=== PATIENT | female | born 1975 | race Caucasian/White ===

== ENCOUNTER 2020-01-27 12:55 | Outpatient (CLI) | payer OTHER, SELFPAY ==
--- NOTE | 2020-01-27 13:08 | MM_ITS ---
WS: [id number] SCREENING DIGITAL MAMMOGRAM WITH CAD HISTORY: SCREENING COMPARISON: 09/09/2017 and 08/22/2016 Bilateral CC and MLO views submitted. Computer aided detection analyzed. Breast composition: The breasts are heterogeneously dense, which may obscure small masses. Asymmetry measuring 5 mm in the lateral RIGHT breast. Possibly superior RIGHT breast on the lateral p rojection. Otherwise no suspicious findings. MM/[place] [id number] IMPRESSION: BI-RADS: 0-Incomplete: Need additional imaging evaluation FOLLOW UP: Need Additional Imaging RIGHT breast: Spot compression views (CC and MLO). True ML. Ultrasound to follo w if abnormality persists.
== END 2020-01-27 12:56 | disposition home or self-care (01) ==
LOC: RADSHAW 12:59
PROVIDERS: PCP Nurse Practitioner; Visit Provider Nurse Practitioner
DX: Z12.31 Encounter for screening mammogram for malignant neoplasm of breast (principal); N64.89 Other specified disorders of breast
CPT/HCPCS: 77067

== ENCOUNTER 2020-02-17 13:34 | Outpatient (CLI) | payer OTHER, SELFPAY ==
--- NOTE | 2020-02-17 13:39 | US_ITS ---
WS: [id number] ADDITIONAL VIEWS RIGHT BREAST RIGHT breast ultrasound, limited HISTORY: RT BREAST ASYMMETRY COMPARISON: 01/27/2020 and 09/09/2017 Compression views right CC and MLO projection. True ML also submitted. Persistent mass measuring 6 mm in the upper outer quadrant of the RIGHT breast at a posterior depth. RIGHT breast ultrasound, limited. Ultrasound directed to the upper outer quadrant. At 10:00, 4 to 5 c m from the nipple is a hypoechoic mass with a hyperechoic border measuring 6 x 5 x 6 mm. Minimal incr eased vascularity. This corresponds in size and location to the mammographic abnormality. There is an additional hypoechoic nodule without shadowing at 10:00, 3 cm in the nipple measuring 6 x 4 x 5 mm. US/US breast RT limited* [id number] IMPRESSION: BI-RADS: 4-Suspicious Finding-Biopsy Should Be Considered FOLLOW-UP: Biopsy Recommended Ultrasound-guided biopsy recommended of the RIGHT breast mass at 10:00, 4 to 5 cm from the nipple. There is an additional nodule at 3 cm from the nipple at the 10:00 axis. Slight ly less concerning features but should also undergo biopsy at the same time.
--- NOTE | 2020-03-02 11:13 | PC.NURSE ---
Called patient to go over pre biopsy instructions. Patient voiced understanding and has no other questions or concerns. Ghazala MCKEON
== END 2020-02-17 13:35 | disposition home or self-care (01) ==
PROVIDERS: PCP Nurse Practitioner; Visit Provider Nurse Practitioner
DX: N64.89 Other specified disorders of breast (principal); N63.11 Unspecified lump in the right breast, upper outer quadrant
CPT/HCPCS: 76642; 77065

== ENCOUNTER 2020-03-06 11:57 | Outpatient (CLI) | payer OTHER, SELFPAY ==
--- NOTE | 2020-03-06 12:02 | US_ITS ---
WS: [id number] ULTRASOUND-GUIDED RIGHT BREAST BIOPSY CLINICAL INFORMATION: R BREAST MASS COMPARISON: None. FINDINGS: The procedure including risks, benefits, and complications were discussed with the patient who agreed to proceed. Using sterile technique patient was prepped and draped in the usual sterile fashion. Aft er 1% lidocaine utilizing real-time ultrasound guidance 5 14-gauge cores were obtained of the right b reast lesion at the 10 o'clock position 4 to 5 cm from the nipple. Subsequently a titanium clip was p laced in the biopsy cavity. No immediate complications. Next, five 14-gauge cores were obtained of the right breast lesion at the 10:00 position 3 cm from th e nipple. Biopsy clip was placed in this area. No immediate combinations. PATHOLOGY DEMONSTRATES: A. 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 -Lymphovascular invasion identified. -Ductal carcinoma in situ, intermediate grade. B. Breast, right, additional nodule at 3 cm from nipple at 10 o'clock -Benign breast tissue with stromal sclerosis. -No malignancy identified. US/[place] [id number] IMPRESSION: 1. Uncomplicated ultrasound-guided right breast biopsy x2. 2. The pathology demonstrates: LESION A: Invasive intramammary carcinoma corresponding to the right breast mass 10:00 po sition 4 to 5 cm from the nipple. LESION B: Benign breast tissue with stromal sclerosis. No malignancy in this location. BI-RADS: 6-Known Biopsy-Proven Malignancy FOLLOW UP: Surgical Biopsy Recommended RECOMMEND BREAST SURGERY CONSULTATION
[2020-03-21 10:24] LABS: Miscellaneous Test See Scanned Lab Rpt
== END 2020-03-06 11:58 | disposition home or self-care (01) ==
LOC: RAD 12:00
PROVIDERS: Radiology Neuroradiology; PCP Nurse Practitioner; Visit Provider Nurse Practitioner
DX: C50.411 Malignant neoplasm of upper-outer quadrant of right female breast (principal)
CPT/HCPCS: 19083; 88305

== ENCOUNTER 2020-03-06 17:38 | Emergency (ER) | payer OTHER, SELFPAY ==
[2020-03-06 17:48] VITALS: BP 120/77; PULSE 105; RESP 18; TEMP 36.2; O2SAT 98; BMI 36.3
--- NOTE | 2020-03-06 18:33 | W.ED.SKABFB ---
HPI - Skin/Abscess/Foreign Bdy General: Chief complaint: Skin/Abscess/Foreign Body Stated complaint: Bleeding from Right Breast/Post Biopsy Time Seen by Provider: 03/06/20 18:32 History of Present Illness: HPI narrative: Patient is a 45-year-old female comes to the ED for post right breast biopsy bleeding. Patient says earlier today she had a biopsy performed on her right breast. She is had bleeding that she has not been able to control and she has been soaking through bandages. She called the doctor and they told her to come to the ED for evaluation. She has no other complaints. Associated symptoms: Deny chills, fever(s), nausea or vomiting Review of Systems Const: Denies: fever(s), chills or fatigue Eyes: Denies: change in vision or eye discomfort ENMT: Denies: throat pain, odynophagia, nasal discharge or nasal congestion Card: Denies: chest pain, palpitations, edema, swelling of feet/ankles, dyspnea on exertion or orthopnea Resp: Denies: dyspnea, productive cough or non-productive cough GI: Denies: abdominal pain, nausea, vomiting, diarrhea, constipation or hematochezia : Denies: flank pain, dysuria or hematuria Musc: Denies: neck pain, back pain or extremity swelling Skin/Breast: Reports: surgical incision (right breast); Denies: rash or new lesions Neuro: Denies: headache(s), numbness in extremities or weakness in extremities Physical Exam Const: COMMON NORMALS: no acute distress, patient oriented x3, healthy appearing and alert GENERAL APPEARANCE: cooperative and comfortable HENMT: COMMON NORMALS: normocephalic HEAD & SCALP: normocephalic MOUTH: Normal oral and palatal mucosa present THROAT: posterior oropharynx normal and uvula midline Neck/C-Spine: COMMON NORMALS: supple GENERAL: Yes normal visual inspection Resp: COMMON NORMALS: normal respiratory effort, No retractions, No use of accessory muscles and clear to auscultation bilaterally AUSCULTATION: clear to auscultation bilaterally Cardio: COMMON NORMALS: regular rate, regular rhythm, S1 normal heart sound present, S2 normal heart sound present, No gallops present (Cardio), No clicks present (Cardio), No murmurs present (Cardio) and Peripheral pulses 2+ throughout RATE: regular rate RHYTHM: regular rhythm HEART SOUNDS: S1 normal heart sound present and S2 normal heart sound present PERIPHERAL PULSES: Peripheral pulses 2+ throughout GI: COMMON NORMALS: Normal to inspection, nondistended, normoactive bowel sounds present, Soft to palpation, non-tender and no masses PALPATION: Yes Soft to palpation : COMMON NORMALS: Yes no CVA tenderness BLADDER/KIDNEY EXAM: Yes no CVA tenderness Back/Pelvis: COMMON NORMALS: no CVA tenderness Extremity: COMMON NORMALS: normal to inspection and no pedal edema Neuro: COMMON NORMALS: patient oriented x3 and moves all extremities SENSORIUM/ORIENTATION: Yes alert Skin: NARRATIVE SKIN EXAM: Nurse was present during exam. surgical site on right breast is to less than half a centimeter incisions. No visible drainage or active bleeding seen. No signs of cellulitis. WOUNDS: Yes surgical site (Patient has no bleeding or drainage around surgical site on right breast. ) Details: size (2 small half a centimeter incisions. No active bleeding or drainage seen.) Course ED course: Nurse changed the bandage over surgical with gauze and Tegaderm. Vital Signs: Vital signs: Vital Signs Temperature 97.2 F L 03/06/20 17:48 Pulse Rate 105 H 03/06/20 17:48 Respiratory Rate 18 03/06/20 17:48 Blood Pressure 120/77 03/06/20 17:48 Pulse Oximetry 98 03/06/20 17:48 MDM - Skin/Abscess/Foreign Bdy MDM Narrative: Medical decision making narrative: Patient is a 45-year-old female comes to the ED with post right breast biopsy bleeding. Current bandage was removed by myself and nurse and surgical site was examined. No active bleeding and no signs of any infection seen. Bleeding appeared to already stopped. gauze with Tegaderm placed over surgical site and patient was sent home with some extra gauze as well. Return to ED precautions given. Patient understood agree with plan. Discharge Plan Discharge Patient Disposition: Home Clinical Impression: Status post breast biopsy Condition: Stable Discharge Orders: Discharge Order (Routine); Ordered 03/06/20 Ordered By: Edmund Yee Referrals: Aniya Solis APN [Primary Care Provider] - Discharge Diet: Regular Discharge Activity: Resume usual activity Patient Instructions: Postoperative Bleeding (ED) Activity Restrictions/Additional Instructions: Follow-up with medical provider as directed by surgeon. Return to the ER or your medical provider if condition worsens. Please read and understand discharge instructions. If any questions, please ask. Coding Level of Care Code ED Equipment Or Machinery Cleaner for Chg Fwd Exam Comprehensive
== END 2020-03-06 19:21 | disposition home or self-care (01) ==
PROVIDERS: Emergency Provider Physician Assistant; PCP Nurse Practitioner
DX: Z98.890 Other specified postprocedural states (principal)
CPT/HCPCS: 12345; 99281

== ENCOUNTER 2020-03-22 09:55 | Outpatient (CLI) | payer OTHER, SELFPAY ==
--- NOTE | 2020-03-22 14:11 | ONC CON_ITS ---
Dr. Florez New Patient Note Patient: Marga Cochran Unit #: [id number]: [id number] Dicatated By: Adrián Florez M.D.Date of Visit: Mar 22, 2020 Onc MED New Patient/Consult Referring Physician: Dominic Aguilar Chief Complaint: Breast cancer. History of Present Illness: This is a 45 year-old woman with grade 3 infiltrating ductal carcinoma of the right breast, ER/OK negative and HER-2/eugene negative. She has been in good general health. She had presented with an abnormal screening mammogram. That study, from 01/27/2020, was BI-RADS 0. Findings included an asymmetry measuring 5 mm in the lateral or possibly superior right breast. Additional mammographic views of the right breast on 02/17/2020 showed persistent mass measuring 6 mm in the upper outer quadrant at a posterior dept. Right breast ultrasound showed a hypoechoic mass with hyperechoic border at the 10 o'clock position, 4 to 6 mm some the nipple. It measred 6 x 5 x 6 mm. There was minimal increased vascularity. That lesion was noted to correspond to the mammographic abnormality. A second hypoechoic nodule without shadowing was noted at 10:00, 3 cm from the nipple, measuring 6 x 4 x 5 mm. The findings were BI-RADS 4, suspicious, and biopsy was recommended. On 03/06/2020 she underwent ultrasound-guided biopsy of both right breast lesions. Pathology on the 10:00 mass at 4 to 5 cm from the nipple showed grade 3 infiltrating ductal carcinoma. Lymphovascular invasion was identified. 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 The breast prognostic profile showed ER negative <1% and OK negative <1%. The tumor was negative for overexpression of HER-2/eugene, 1+ by IHC and amplification ratio by FISH of 1.1 with 1.3 HER-2 copies/cell. The Ki-67 was unfavorable at 70%. Pathology on the lesion 3 cm from the nipple showed benign breast tissue with stromal sclerosis. There was no malignancy identified. She has been feeling pretty good generally. She says she gets tired a little bit quicker, but she still has normal activity. ECOG score is 0. Her appetite is good and her weight is stable. She has not had fever. She does have hot flashes. She has some allergy related sinus drainage with associated cough. She has no shortness of breath or chest pain. She has no GI/ complaints other than some chronic constipation. She has fibromyalgia pain, but no significant joint or bone pain. She reports having constant headache. She occasionally has numbness in her left hand. She has no other focal neurologic symptoms. She stopped menstruating 3 years ago. She had no hormone replacement therapy, but she had taken oral contraceptive in the past. Her father has been treated for prostate cancer, and a brother of a brain tumor at age 9. There is no history of breast cancer or ovarian cancer in the family. Past Medical History: Her medical history consists of chronic headaches, depression, and fibromyalgia. Past Surgical History: She underwent ultrasound directed biopsy of the right breast on 03/06/2020. Medications: Amitriptyline HCl 1 Tablet (of 75 mg) Oral daily, Claritin 1 Tablet (of 10 mg) Oral daily, Ibuprofen 1 Tablet (of 600 mg) Oral daily PRN, Venlafaxine HCl ER 1 Capsule (of 150 mg) Capsule SR 24 HR Oral daily Allergies: No Known Allergies. Social History: Ms. 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 She is a non-smoker. She has just occasional alcohol use. Family History: Both parents are still living, father at age 88 and mother at age 76. He has been treated for prostate cancer and he also has had a stroke. Her mother has fibromyalgia and history of uveitis. A brother of a brain tumor at age 9. Review Of Symptoms: Constitutional - She has been getting tired a little bit quicker. She still has normal activity. Her appetite is good and her weight is stable. She has not had fever. She does have hot flashes. ECOG score is 0, Eyes - No change in vision, ENMT - No hearing loss. She has tinnitus. She has allergy related sinus symptoms. No mouth sores. No sore throat or difficulty swallowing, Hematologic/Lymphatic - No abnormal bruising or bleeding, Respiratory - No shortness of breath. She has cough associated with sinus drainage. No pleuritic pain or hemoptysis, Cardiovascular - No angina pain. No palpitations, Gastrointestinal - No nausea or vomiting. No heartburn or acid reflux. She has some chronic constipation. No blood in the stool or black stools, Genitourinary (F) - No dysuria or hematuria. No urinary frequency. No urgency or incontinence, Musculoskeletal - She has fibromyalgia pain, but no significant joint or bone pain, Integumentary - No skin rash or other skin changes, Neurologic - She has chronic headaches. No dizziness. She occasionally has numbness in her left hand. No other focal neurologic symptoms, Psychiatric - She has depression, but it is adequately managed with medication. She has some difficulty falling asleep. Vital Signs: Performed on Mar 22, 2020 11:08: 0, 37.63 (HIGH), 1.98 sq.m, 63.00 in, 98 %, 78 /min, 22 /min, 110/78 mm(hg), 98.3 F (LOW), and 212.4 lbs (HIGH). Physical Examination: Constitutional - She appears to be in good general health, Eyes - Sclerae nonicteric. Conjunctivae clear, ENMT - No lesions noted in the oral cavity, Neck - No mass or thyromegaly, Hematologic/Lymphatic - No cervical or clavicular adenopathy, Respiratory - Lungs are clear with good air movement bilaterally, Cardiovascular - Heart rhythm is regular. There is no murmur, gallop, or rub noted, Breasts - There is a small area of nodularity/induration at the biopsy site in the upper outer quadrant of the right breast. The left breast shows no mass. There is no axillary adenopathy, Abdomen - Soft and non-tender. Liver and spleen are not enlarged. There is no abdominal mass or ascites noted and there is no inguinal adenopathy, Back/Spine - No spine or CVA tenderness noted, Extremities - No edema, Integumentary - No rashes. No suspicious skin lesions noted, Neurologic - No focal neurologic deficits noted. Impression: 1. Patient with grade 3 infiltrating ductal carcinoma of the right breast, ER/OK negative and HER-2/eugene negative. Staging is incomplete, but by ultrasound she appears to have a very small primary tumor (T1b). 2. She underwent ultrasound directed biopsy of the right breast on 03/06/2020. Her other medical illnesses include: 3. Fibromyalgia. 4. Chronic headache. 5. Depression. Plan: The mammogram/ultrasound findings and the pathology results were reviewed with the patient and her . She has a grade 3 triple negative infiltrating ductal carcinoma of the right breast. The Ki-67 is high at 70%. Overall, the pathologic indicators are very unfavorable. However, by ultrasound it appears to be a very small primary so that she hopefully will have a good outcome. I reviewed options for local therapy which may include lumpectomy/radiation versus mastectomy. With either procedure she would also have axillary lymph node sampling. With a single, small primary lesion breast conservation management would still be a very reasonable option, even in the setting of triple negative disease, and there would be no indication for neoadjuvant chemotherapy. She may, however, still be interested in mastectomy, and they are going to take some time to discuss that further. Recommendations for systemic adjuvant chemotherapy will depend on the final staging. We also discussed the fact that if she is going to have a lumpectomy procedure, we may want to consider removing both of the breast lesions, just to be 100% certain that the second lesion is benign. I will plan to contact them next week to arrange for surgical consultation. Signed By: Adrián Florez M.D. <<Signature on File>>
== END 2020-03-22 09:56 | disposition home or self-care (01) ==
LOC: ONCMED 09:56
PROVIDERS: PCP Nurse Practitioner; Visit Provider Internal Medicine Medical Oncology
DX: C50.411 Malignant neoplasm of upper-outer quadrant of right female breast (principal); Z17.1 Estrogen receptor negative status [ER-]; M79.7 Fibromyalgia; F32.9 Major depressive disorder, single episode, unspecified; R51.9 Headache, unspecified
CPT/HCPCS: 99205

== ENCOUNTER → 2020-03-30 14:23 | Outpatient (BNVA) | payer OTHER, SELFPAY | PROVIDERS: PCP Nurse Practitioner; Visit Provider Surgery | DX: Z20.828 Contact with and (suspected) exposure to other viral communicable diseases (principal); C50.911 Malignant neoplasm of unspecified site of right female breast | CPT/HCPCS: 87635 ==

== ENCOUNTER 2020-04-05 07:36 | Day surgery (SDC) | payer OTHER, SELFPAY ==
[2020-04-04 13:59] VITALS: BMI 37.2
--- NOTE | 2020-04-05 | US_ITS ---
WS: [id number] ULTRASOUND-GUIDED RIGHT BREAST NEEDLE LOCALIZATION x 2 HISTORY: MALIGNANT NEOPLASM OF THE RIGHT BREAST Procedure, risks and complications were explained to the patient. Consent is obtained. There are 2 nodules in the RIGHT breast for which localization is requested. One of these nodules is malignant and the other was benign on prior biopsy. Skin is cleansed with ChloraPrep and anesthetized with 1% buffered lidocaine. Needle and guidewire pl aced to the area of concern with no complications. Ultrasound guidance performed during the needle lo calization. Guidewire is left within the lesion. Guidewire secured and no complications encountered. Patient is being transported to the OR suite. Initial wire is placed through the 10:00 lesion 3 cm from the nipple. Subsequent wire is then placed in the previously diagnosed malignant nodule at 10:00, 4 to 5 cm from the nipple. Specimen radiograph is also reviewed. The nodules are difficult to see by ultrasound. Mammographic im ages submitted in both clips are present. RECOMMENDATIONS: Follow-up with oncology and surgery. 2. Mass at 10:00, 3 cm from the nipple. Labeled lateral margin lumpectomy. PATHOLOGY RESULTS: Negative for malignancy. RECOMMENDATIONS: No additional follow-up necessary. US/US breast surgical specimen IMPRESSION: 1. Uncomplicated wire localization RIGHT breast mass at 10:00, 4 to 5 cm from t he nipple. PATHOLOGY RESULTS: Moderate to poorly differentiated invasive ductal carcinoma. Lymphovascular invasion identified. Ductal carcinoma in situ. Anterior margin is positive.
--- NOTE | 2020-04-05 | US_ITS ---
WS: [id number] ULTRASOUND-GUIDED RIGHT BREAST NEEDLE LOCALIZATION x 2 HISTORY: MALIGNANT NEOPLASM OF THE RIGHT BREAST Procedure, risks and complications were explained to the patient. Consent is obtained. There are 2 nodules in the RIGHT breast for which localization is requested. One of these nodules is malignant and the other was benign on prior biopsy. Skin is cleansed with ChloraPrep and anesthetized with 1% buffered lidocaine. Needle and guidewire pl aced to the area of concern with no complications. Ultrasound guidance performed during the needle lo calization. Guidewire is left within the lesion. Guidewire secured and no complications encountered. Patient is being transported to the OR suite. Initial wire is placed through the 10:00 lesion 3 cm from the nipple. Subsequent wire is then placed in the previously diagnosed malignant nodule at 10:00, 4 to 5 cm from the nipple. Specimen radiograph is also reviewed. The nodules are difficult to see by ultrasound. Mammographic im ages submitted in both clips are present. RECOMMENDATIONS: Follow-up with oncology and surgery. 2. Mass at 10:00, 3 cm from the nipple. Labeled lateral margin lumpectomy. PATHOLOGY RESULTS: Negative for malignancy. RECOMMENDATIONS: No additional follow-up necessary. US/[place] [id number] IMPRESSION: 1. Uncomplicated wire localization RIGHT breast mass at 10:00, 4 to 5 cm from t he nipple. PATHOLOGY RESULTS: Moderate to poorly differentiated invasive ductal carcinoma. Lymphovascular invasion identified. Ductal carcinoma in situ. Anterior margin is positive.
--- NOTE | 2020-04-05 07:44 | NM_ITS ---
WS: [id number] NUCLEAR MEDICINE SENTINEL LYMPH NODE IMAGING HISTORY: R BREAST LUMPECTOMY COMPARISON: None available. TECHNIQUE: The patient was injected with 1.04 mCi of Technetium 99 ultra filtered sulfur colloid. Inj ection is intradermal in a periareolar location. Four aliquots are used. Uncomplicated injection. NM/NM sentinel node inject [id number] IMPRESSION: Uncomplicated RIGHT breast sentinel node injection.
[2020-04-05 07:51] VITALS: BP 132/85; PULSE 92; RESP 18; TEMP 36.4; O2SAT 97
[2020-04-05 08:09] LABS: OR HCG Qualitative Urine Negative (Negative)
--- NOTE | 2020-04-05 09:45 | W.PM.OPSUD ---
Surgery/Procedure H&P Update DATE OF PROCEDURE: April 05, 2020 DATE H&P PERFORMED: 03/28/20 H&P UPDATE INFORMATION: I have reviewed H&P completed within last 30 days, I have examined patient prior to procedure and No changes to prior documentation PREOP DIAGNOSIS: breast ca PLANNED PROCEDURE: Operation Date: 04/05/20 11:20 Proposed Procedures p Breast Biopsy Needle Localization [id number] C50.911(Right) - Harshal Frazier MD s Sentinal Lymph Node Biopsy(Right) - Harshal Frazier MD s Right Breast Lumpectomy(Right) - Harshal Frazier MD
[2020-04-05] MEDS: sodium chloride 0.9% 1,000 ML 30 ML IV (10:10)
--- NOTE | 2020-04-05 10:19 | P.ANESASSM_ITS ---
Pre-Anesthetic Assessment Pre-Anesthetic Assessment: Height/Weight: Height 1.6 m Weight 95.254 kg Temp Pulse Resp BP Pulse Ox 97.5 F L 92 18 132/85 97 04/05/20 07:51 04/05/20 07:51 04/05/20 07:51 04/05/20 07:51 04/05/20 07:51 Preop Diagnosis: breast ca Proposed Procedure: Operation Date: 04/05/20 11:20 Proposed Procedures p Breast Biopsy Needle Localization [id number] C50.911(Right) - Harshal Frazier MD s Sentinal Lymph Node Biopsy(Right) - Harshal Frazier MD s Right Breast Lumpectomy(Right) - Harshal Frazier MD Was Beta Amira taken within 24 hours: N/A Last intake: Intake Last Liquid Date 04/04/20 Last Liquid Time 18:30 Last Solid Date 04/04/20 Last Solid Time 18:30 Social: Social History: Alcohol and No tobacco Exam: Pre-Anes Outpt Exam: alert, oriented x 3, clear to auscultation bilaterally and regular rate & rhythm Airway: Submandibular: WNL Cervical ROM: WNL MP: 2 Dentition: Full History/ROS: No significant history except as noted and No significant complaints Pulmonary: Pulmonary: None reported CV/HEM: CV/HEM: None reported : : None reported Hepatic: Hepatic: None reported GI: GI: None reported Metabolic: Metabolic: None reported Musc/skel: Musc/skel: None reported Neuropsych: Neuropsych: None reported Anesthetic Plan: ASA status: 1 Anesthesia: General Risk of > 500 ml blood loss (7ml/kg in children): No PFSH Anesthesia PFSH: Medical History Breast cancer, right breast Depression Fibromyalgia Migraine Family History Denies family history of Anesthesia complication Bleeding disorder Social History Smoking and tobacco status: never smoked Alcohol intake: current Alcohol intake frequency: holidays/special occasions only Adopted: No Caregiver/support person: Yes Lives independently: Yes Household members: spouse and children Housing: House Marital status: service: No Current occupational status: employed Pets and animals: No History of recent travel: No Sexually active: Yes Current gender identity: Female Harrison/Zoroastrianism: Christianity Special harrison needs: No Data Anesthesia Other Labs: Laboratory Results - last 48 hr 04/05/20 08:05 Urine HCG, Qual Negative Cardiac Studies: No Data to Display
[2020-04-05] MEDS: isosulfan blue 10 mg/mL SDV 5mL SUBCUT (11:55)
[2020-04-05] MEDS: lidocaine 1% INJ 20 mL SUBCUT (13:15)
--- NOTE | 2020-04-05 13:41 | MM_ITS ---
WS: [id number] ULTRASOUND-GUIDED RIGHT BREAST NEEDLE LOCALIZATION x 2 HISTORY: MALIGNANT NEOPLASM OF THE RIGHT BREAST Procedure, risks and complications were explained to the patient. Consent is obtained. There are 2 nodules in the RIGHT breast for which localization is requested. One of these nodules is malignant and the other was benign on prior biopsy. Skin is cleansed with ChloraPrep and anesthetized with 1% buffered lidocaine. Needle and guidewire pl aced to the area of concern with no complications. Ultrasound guidance performed during the needle lo calization. Guidewire is left within the lesion. Guidewire secured and no complications encountered. Patient is being transported to the OR suite. Initial wire is placed through the 10:00 lesion 3 cm from the nipple. Subsequent wire is then placed in the previously diagnosed malignant nodule at 10:00, 4 to 5 cm from the nipple. Specimen radiograph is also reviewed. The nodules are difficult to see by ultrasound. Mammographic im ages submitted in both clips are present. RECOMMENDATIONS: Follow-up with oncology and surgery. 2. Mass at 10:00, 3 cm from the nipple. Labeled lateral margin lumpectomy. PATHOLOGY RESULTS: Negative for malignancy. RECOMMENDATIONS: No additional follow-up necessary. MM/MM surgical specimen RT IMPRESSION: 1. Uncomplicated wire localization RIGHT breast mass at 10:00, 4 to 5 cm from t he nipple. PATHOLOGY RESULTS: Moderate to poorly differentiated invasive ductal carcinoma. Lymphovascular invasion identified. Ductal carcinoma in situ. Anterior margin is positive.
[2020-04-05 13:58] VITALS: BP 94/76; PULSE 99; RESP 20; TEMP 36.1; O2SAT 99
[2020-04-05 14:05] VITALS: BP 89/48; PULSE 80; RESP 20; O2SAT 100
[2020-04-05 14:10] VITALS: BP 114/76; PULSE 92; RESP 15; TEMP 36.2; O2SAT 97
[2020-04-05 14:14] VITALS: BP 109/83; PULSE 89; RESP 16; TEMP 36.2; O2SAT 95
[2020-04-05 14:30] VITALS: BP 100/83; PULSE 90; RESP 18; O2SAT 96
[2020-04-05] MEDS: HYDROcodone-acetaminophen 5-325 mg Tablet 1 TAB PO (14:33)
--- NOTE | 2020-04-05 15:27 | P.OP_ITS ---
Operative Report Date of procedure: April 05, 2020 Pre-op Diagnosis: 6 mm invasive ductal carcinoma right breast Pre-op Diagnosis: 6 x 5 x 4 cm right breast lesion Post-op Findings: Same Procedure Done: Wire localization lumpectomy right breast with shave margin Injection of 1% Lymphazurin Right axillary sentinel lymph node biopsy Pathology: Right breast mass containing 2 localization wires for the benign as well as malignancy, short stitch superior, long stitch lateral Lateral shave margin Right axillary sentinel lymph node biopsy Surgeon: Harshal Frazier Anesthesia: General Condition: stable Disposition: PACU Procedure: The wire localization of the mammographic abnormality was performed by the radiologist under ultrasound guidance and the patient was transferred to operating room and placed under GA after IV antibiotic had been administered. The right breast was prepped and draped in a manner . 2 separate localization wires had been placed for the 2 lesions at 10 o'clock position about 3 cm and 5 cm from the areolar margin. A curvilinear incision was made over the areolar margin at 9'o clock medial to the marking over the mammographic abnormality, subcutaneous tissue was divided and skin flaps were raised laterally. The dissection was carried towards the localization wires creating a subcutaneous plane and the wires were identified and the dissection was carried superior and lateral to the localized area. Finally the dissection was carried medially,superiorly, inferiorly and posterior to the localized area and specimen was excised completely. Using 2-0 silk suture, short stitch was placed superiorly and a long stitch was placed laterally. Shave margin margin was obtained laterally and the outer edge was inked and sent separately to patho logy. The wound was irrigated with saline, titanium clips placed along the edge of the lumpectomy cavity, hemostasis ensured with electrocautery and subcutaneous tissues approximated using 3-0 running Vicryl suture and skin was closed using running subcuticular 4-0 Monocryl sutures and surgical glue. A technetium sulfur colloid had been injected previously by the radiologist in the periareolar area. 5 mL of 1% Lymphazurin was injected in the subareolar location. The breast was massaged for 5 minutes and a 2 cm incision was made in the left axilla at the edge of the hairline. The subcutaneous tissue and clavipectoral fascia was divided with electrocautery and gentle dissection revealed lymphatics with stained lymph nodes. Using electrocautery the lymph nodes were dissected free. Examination of the axilla did not reveal any other active lymph nodes. The clavipectoral and subcutaneous tissue was approximated using running 3-0 Vicryl suture and skin was closed using running subcuticular 4-0 Monocryl suture and surgical glue.. 1% lidocaine with 0.5% Marcaine was infiltrated at both sites. Fluffs were used for pressure dressing. Patient was transferred to recovery room in stable condition The lumpectomy specimens were sent to ultrasound initially, the biopsy clips could not be identified but it was confirmed on mammogram.
--- NOTE | 2020-04-05 18:37 | ANE.PACU2 ---
Inpatient post-anesthesia follow up: Airway intact: Yes Vital signs: Temperature 97.1 F Pulse Rate 90 Respiratory Rate 18 Blood Pressure 100/83 Pulse Oximetry 96 Oxygen Delivery Me thod Room Air Oxygen Flow Rate 6 Fraction of Inspir ed Oxygen Hydration adequate: Yes Nausea and vomiting: No Pain level: 1 Mental status: Baseline
== END 2020-04-05 14:59 | disposition home or self-care (01) ==
PROVIDERS: PCP Nurse Practitioner; Visit Provider Surgery
PROC: (CPT 19301; principal; 2020-04-05 11:20)
PROC: (CPT 19301; 2020-04-05 11:20)
PROC: (CPT 19301; 2020-04-05 11:20)
DX: C50.911 Malignant neoplasm of unspecified site of right female breast (principal); F32.9 Major depressive disorder, single episode, unspecified; M79.7 Fibromyalgia
CPT/HCPCS: 19301; 38500; 12345; 19285; 19286; 38792; 84703; 88305; 96365; A9541; J0690; J1100; J1885; J2370; J2405; J2704; J3010; J3490; J7030; Q9968

== ENCOUNTER 2020-04-17 08:28 | Outpatient (CLI) | payer OTHER, SELFPAY | END 2020-04-17 08:29 | disposition home or self-care (01) | LOC: ONCMED 08:31 | PROVIDERS: PCP Nurse Practitioner; Visit Provider Internal Medicine Medical Oncology | DX: C50.411 Malignant neoplasm of upper-outer quadrant of right female breast (principal); Z17.1 Estrogen receptor negative status [ER-] | CPT/HCPCS: 36415 ==

== ENCOUNTER → 2020-05-10 08:51 | Outpatient (BNVA) | payer OTHER, SELFPAY | PROVIDERS: PCP Nurse Practitioner; Visit Provider Surgery | DX: Z11.59 Encounter for screening for other viral diseases (principal); C50.911 Malignant neoplasm of unspecified site of right female breast | CPT/HCPCS: 87635 ==

== ENCOUNTER 2020-05-15 06:10 | Day surgery (SDC) | payer OTHER, SELFPAY ==
[2020-05-12 13:05] VITALS: BMI 37.2
[2020-05-15 06:24] VITALS: BP 119/80; PULSE 92; RESP 18; TEMP 36; O2SAT 98
--- NOTE | 2020-05-15 06:45 | P.HP_ITS ---
Same Day Surgery H&P Indication for Procedure/HPI DATE OF PROCEDURE: May 15, 2020 CHIEF COMPLAINT/INDICATIONFOR SURGICAL PROCEDURE: Right breast reexcision of margins PREOP DIAGNOSIS: Positive margin breast cancer PLANNED PROCEDRUE: Operation Date: 05/15/20 07:40 Proposed Procedures p Right breast Lumpectomy 78368 C50.911(Right) - Harshal Frazier MD Medications/Allergies* Home Medications Medication Instructions Recorded Confirmed Type amitriptyline 75 mg tablet 75 mg PO DAILY 03/28/20 05/15/20 History ibuprofen 600 mg tablet 600 mg PO Q8H PRN 03/28/20 05/15/20 History loratadine 10 mg tablet 10 mg PO DAILY 03/28/20 05/15/20 History venlafaxine 150 mg 150 mg PO DAILY 03/28/20 05/15/20 History capsule,extended release 24 hr Allergies/Adverse Reactions Allergy/AdvReac Type Severity Reaction Status Date / Time No Known Allergies Allergy Verified 05/12/20 13:03 Pertinent History/Comorbid Conditions* Medical History (Updated 03/28/20 @ 15:20 by Harshal Frazier MD) Breast cancer, right breast Depression Fibromyalgia Migraine Surgical History (Updated 04/05/20 @ 14:05 by Harshal Frazier MD) Status post right breast lumpectomy (04/05/20) sentinel lymph node biopsy Family History (Updated 03/28/20 @ 14:54 by Fidelina Adler RN) Denies family history of Anesthesia complication Bleeding disorder Social History Smoking and tobacco status: never smoked Alcohol intake: current Alcohol intake frequency: holidays/special occasions only Adopted: No Caregiver/support person: Yes Lives independently: Yes Household members: spouse and children Housing: House Marital status: service: No Current occupational status: employed Pets and animals: No History of recent travel: No Sexually active: Yes Current gender identity: Female Mary/Moravian: [employer] Special mary needs: No Pertinent Exam Findings alert, oriented x 3 and regular rate & rhythm Recommendations Surgery/Procedure today Coding Level of Care Code 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
--- NOTE | 2020-05-15 06:47 | ANES.PREANE2 ---
Pre-Anesthetic Assessment Pre-Anesthetic Assessment: Height/Weight: Height 1.6 m Weight 95.254 kg Temp Pulse Resp BP Pulse Ox 96.8 F L 92 18 119/80 98 05/15/20 06:24 05/15/20 06:24 05/15/20 06:24 05/15/20 06:24 05/15/20 06:24 Preop Diagnosis: Positive margin breast cancer Proposed Procedure: Operation Date: 05/15/20 07:40 Proposed Procedures p Right breast Lumpectomy 87318 C50.911(Right) - Harshal Frazier MD Familial anesthetic complications: None Was Beta Amira taken within 24 hours: N/A Last intake: Intake NPO > 8 hrs Last Liquid Date 05/14/20 Last Solid Date 05/14/20 Social: Social History: No alcohol and No tobacco Exam: Pre-Anes Outpt Exam: alert, oriented x 3, clear to auscultation bilaterally and regular rate & rhythm Airway: Cervical ROM: WNL MP: 4 Dentition: Full Metabolic: Metabolic: Morbid obesity Anesthetic Plan: ASA status: 1 Anesthesia: MAC Risk of > 500 ml blood loss (7ml/kg in children): No PFSH Anesthesia PFSH: Medical History Breast cancer, right breast Depression Fibromyalgia Migraine Surgical History Status post right breast lumpectomy (04/05/20) sentinel lymph node biopsy Family History Denies family history of Anesthesia complication Bleeding disorder Social History Smoking and tobacco status: never smoked Alcohol intake: current Alcohol intake frequency: holidays/special occasions only Adopted: No Caregiver/support person: Yes Lives independently: Yes Household members: spouse and children Housing: House Marital status: service: No Current occupational status: employed Pets and animals: No History of recent travel: No Sexually active: Yes Current gender identity: Female Harrison/Restorationism: Catholic Special harrison needs: No Data Anesthesia Cardiac Studies: No Data to Display
[2020-05-15] MEDS: sodium chloride 0.9% 1,000 ML 30 ML IV (06:49)
[2020-05-15] MEDS: lidocaine 1% INJ 20 mL 10 ML INJECTION (07:45)
--- NOTE | 2020-05-15 07:52 | PM.OP ---
Operative Report Date of procedure: May 15, 2020 Pre-op Diagnosis: 1. Triple negative invasive ductal adenocarcinoma 2. Status post right breast lumpectomy sentinel lymph node biopsy with positive anterior margin with DCIS Post-op Findings: Same Procedure Done: Reexcision of anterior margin right breast lumpectomy site Pathology: Anterior margin, outer edge inked Surgeon: Harshal Frazier Anesthesia: MAC Condition: stable Disposition: PACU Procedure: The patient was taken to the operating room and placed under MAC and the right breast was prepped and draped in a sterile manner. Using a 15 blade the incision on the areola was reopened, subcutaneous tissue was divided using electrocautery and the lumpectomy cavity was reopened. The clips previously placed at the margins of the lumpectomy cavity was identified. Using electrocautery a 1 cm anterior margin was excised and the outer edge was inked. Wound was irrigated saline, hemostasis ensured and subcutaneous was approximated using interrupted 3-0 Vicryl suture and skin was closed using running subcuticular 4-0 Monocryl suture and surgical glue. Fluffs and support bras were placed. The patient was transferred to same-day surgery in stable condition.
[2020-05-15 07:57] VITALS: BP 134/84; PULSE 91; RESP 18; TEMP 36; O2SAT 92
[2020-05-15 08:14] VITALS: BP 148/99; PULSE 88; RESP 18; O2SAT 97
--- NOTE | 2020-05-15 15:41 | ANE.PACU2 ---
Inpatient post-anesthesia follow up: Airway intact: Yes Vital signs: Temperature 96.8 F Pulse Rate 88 Respiratory Rate 18 Blood Pressure 148/99 Pulse Oximetry 97 Oxygen Delivery Me thod Room Air Oxygen Flow Rate Fraction of Inspir ed Oxygen Hydration adequate: Yes Nausea and vomiting: No Pain level: 1 Mental status: Baseline
== END 2020-05-15 08:47 | disposition home or self-care (01) ==
PROVIDERS: PCP Nurse Practitioner; Visit Provider Surgery
PROC: (CPT 19301; principal; 2020-05-15 07:30)
DX: C50.911 Malignant neoplasm of unspecified site of right female breast (principal); F32.9 Major depressive disorder, single episode, unspecified; M79.7 Fibromyalgia; E66.01 Morbid (severe) obesity due to excess calories; Z68.37 Body mass index [BMI] 37.0-37.9, adult
CPT/HCPCS: 19301; 12345; 88305; J0690; J2704; J3010; J3490; J7030

== ENCOUNTER 2020-06-06 05:55 | Outpatient (CLI) | payer OTHER, SELFPAY ==
--- NOTE | 2020-06-07 07:22 | ONC FU_ITS ---
Dr. Florez Patient Follow-Up Note Patient: Marga Cochran Unit #: [id number]: 1975 Dicatated By: Adrián Florez M.D.Date of Visit:Jun 06, 2020 Onc Med Follow-up/Prog Note Chief Complaint: Breast cancer. History of Present Illness: This is a 45 year-old woman with grade 3 infiltrating ductal carcinoma of the right breast, ER/SC negative and HER-2/eugene negative. She had presented with an abnormal screening mammogram. That study, from 01/27/2020, was BI-RADS 0. Findings included an asymmetry measuring 5 mm in the lateral or possibly superior right breast. Additional mammographic views of the right breast on 02/17/2020 showed persistent mass measuring 6 mm in the upper outer quadrant at a posterior dept. Right breast ultrasound showed a hypoechoic mass with hyperechoic border at the 10 o'clock position, 4 to 6 mm some the nipple. It measred 6 x 5 x 6 mm. There was minimal increased vascularity. That lesion was noted to correspond to the mammographic abnormality. A second hypoechoic nodule without shadowing was noted at 10:00, 3 cm from the nipple, measuring 6 x 4 x 5 mm. The findings were BI-RADS 4, suspicious, and biopsy was recommended. On 03/06/2020 she underwent ultrasound-guided biopsy of both right breast lesions. Pathology on the 10:00 mass at 4 to 5 cm from the nipple showed grade 3 infiltrating ductal carcinoma. Lymphovascular invasion was identified. 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 The breast prognostic profile showed ER negative <1% and SC negative <1%. The tumor was negative for overexpression of HER-2/eugene, 1+ by IHC and amplification ratio by FISH of 1.1 with 1.3 HER-2 copies/cell. The Ki-67 was unfavorable at 70%. Pathology on the lesion 3 cm from the nipple showed benign breast tissue with stromal sclerosis. There was no malignancy identified. I had seen her initially on 03/22/2020. She opted to proceed with breast conservation management. On 04/05/2020 she underwent right breast lumpectomy with axillary sentinel lymph node biopsy. Pathology showed grade 3 invasive ductal carcinoma. The largest focus measured 0.4 cm. There was a minor component of ductal carcinoma in situ. The anterior margin was reported to be focally positive. All other margins were negative. There was no involvement in 1 sentinel lymph node. She underwent reexcision lumpectomy on 05/15/2020. There is no residual carcinoma identified. In the meantime, I had also recommended genetic screening. 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 There was no evidence for a BRCA mutation. She is seen now to discuss further management of the breast cancer. She has no significant complaints at this time. Medications: Amitriptyline HCl 1 Tablet (of 75 mg) Oral daily, Claritin 1 Tablet (of 10 mg) Oral daily, Ibuprofen 1 Tablet (of 600 mg) Oral daily PRN, Venlafaxine HCl ER 1 Capsule (of 150 mg) Capsule SR 24 HR Oral daily Allergies: No Known Allergies. Vital Signs: Performed on Jun 06, 2020 11:10 Height - 63.00 in Weight - 216.4 lbs (HIGH) BSA - 2.00 sq.m BMI - 38.33 (HIGH) Temperature - 97.2 F (LOW) Pulse - 86 /min Respiration - 17 /min BP - 124/82 mm(hg) O2 Sat - 96 % Pain - 0 Problem List: 1. Grade 3 infiltrating ductal carcinoma of the right breast, stage IB (T1b, pN0, M0), ER/SC negative and HER-2/eugene negative. She underwent ultrasound directed biopsy of the right breast on 03/06/2020 followed by right breast lumpectomy and sentinel axillary lymph node biopsy on 04/05/2020 and by reexcision lumpectomy on 05/15/2020. 2. Fibromyalgia. 3. Chronic headache. 4. Depression. Problems Addressed with this Encounter and Plan: Grade 3 infiltrating ductal carcinoma of the right breast, stage IB (T1b, pN0, M0), ER/SC negative and HER-2/eugene negative. She underwent ultrasound directed biopsy of the right breast on 03/06/2020 followed by right breast lumpectomy and sentinel axillary lymph node biopsy on 04/05/2020 and by reexcision lumpectomy on 05/15/2020. There is some uncertainty of the staging due to the small size of her primary tumor, but I estimated it to be a T1b lesion based on the size of the initial biopsy specimen, which was almost completely involved, and the residual tumor in the lumpectomy specimen measuring 0.4 cm. While she does appear to have very early stage disease, the concern is the fact that with a triple negative cancer with a high Ki-67 at 70% she will be at significant risk for recurrence, which which I would estimate to be at least average for node-negative breast cancer, that is in the range of at least 30% recurrence risk. Per NCCN guidelines, she is in a category in which adjuvant chemotherapy may be considered. I discussed with the patient and her the possibility of undergoing adjuvant chemotherapy with 4 cycles of cyclophosphamide/docetaxel, which statistically would have a 30% reduction in the risk of recurrence. She is aware that there would still be risk for breast cancer recurrence even with treatment. I reviewed anticipated side effects with the chemotherapy which would potentially include nausea/vomiting, alopecia, fatigue, low blood counts, and neuropathy, among others. She is aware that she also will require placement of a Port-A-Cath for venous access for the chemotherapy. She is going to discuss this with her , and I anticipate that she will be making a decision by the end of the week. If she opts against chemotherapy, she can proceed with radiation. Radiation would otherwise be deferred until after the chemotherapy is completed. Signed By: Adrián Florez M.D. <<Signature on File>>
== END 2020-06-06 05:56 | disposition home or self-care (01) ==
LOC: ONCMED 05:55
PROVIDERS: PCP Nurse Practitioner; Visit Provider Internal Medicine Medical Oncology
DX: C50.411 Malignant neoplasm of upper-outer quadrant of right female breast (principal); Z17.1 Estrogen receptor negative status [ER-]; M79.7 Fibromyalgia; R51.9 Headache, unspecified; F32.9 Major depressive disorder, single episode, unspecified
CPT/HCPCS: 99214

== ENCOUNTER 2020-06-22 05:39 | Outpatient (RCR) | payer OTHER, SELFPAY ==
--- NOTE | 2020-06-21 09:56 | N.ONRAD NP_ITS ---
Radiation Oncology Consultation Patient Name: Marga Cochran Date of : 1975 Date of Service: 06/21/2020 Attending Physician: Raymond Love M.D. Marga Cochran was seen in consultation this afternoon at the request of Adrián Florez M.D. for consideration of adjuvant radiotherapy for the management of her recently diagnosed early stage breast cancer. A screening mammogram (personally reviewed in [facility]) performed in January 2020 identified an asymmetry measuring 5 mm in the right breast. Diagnostic mammography confirmed a persistent mass in the upper-outer quadrant of the right breast. Ultrasonography demonstrated at the 10 o'clock position in the right breast, 4 to 5 cm from the nipple, a hypoechoic mass (6 mm) and an additional hypoechoic nodule without shadowing at the 10 o'clock position, 3 cm from the nipple measuring 6 mm. An ultrasound-guided biopsy completed on March 07, 2020 diagnosed a grade III invasive ductal carcinoma obtained from the lesion located 4 to 5 cm from the nipple and benign breast tissue with stromal sclerosis identified from the biopsy specimen 3 cm from the nipple. The breast cancer profile was negative for estrogen receptor, progesterone receptor, and HER-2. The Ki-67 was 70%. A right partial mastectomy with sentinel lymph node biopsy was performed by Freddie Caputo M.D. on April 05, 2020. The pathology report obtained in [facility] (and directly canvassed by co) confirmed a 4 mm invasive ductal carcinoma (grade III). A sentinel lymph node biopsy harvested one lymph node that was negative for metastasis. Anterior margin was positive. A re-excision completed on May 07, 2020 identified benign breast tissue. The patient presents for evaluation regarding adjuvant radiotherapy. I discussed the [place] [employer] on Cancer Staging and specifically the patient's pathologic stage IB (T1aN0) breast cancer, I also reviewed the classic study by the NSABP comparing mastectomy, lumpectomy, and lumpectomy with radiotherapy and the Early Breast Cancer Trialist Collaborative Group meta-analysis. She is aware that the addition of radiotherapy to lumpectomy provides improvement in local control and overall survival. Prior to beginning treatment, a planning CT scan will be acquired to delineate the clinical target volume. I anticipate a three week course of radiotherapy to the breast. An additional week will be administered to the surgical bed at the conclusion of the whole breast treatment as a consequence of the patient's high-grade tumor characteristics The patient has verbalized understanding and would like to proceed as recommended. Signed by: Dr. Raymond Love 06/21/2020 10:07:30 AM
--- NOTE | 2020-06-22 | CT_ITS ---
Radiation Therapy Planning CT images; total exam DLP: 1096.55 mGy-cm MTDD
== END 2020-06-25 23:59 | disposition home or self-care (01) ==
LOC: ONCMED 05:39
PROVIDERS: PCP Nurse Practitioner; Visit Provider Radiology Radiation Oncology
DX: Z51.0 Encounter for antineoplastic radiation therapy (principal); C50.411 Malignant neoplasm of upper-outer quadrant of right female breast; Z17.1 Estrogen receptor negative status [ER-]; M79.7 Fibromyalgia; G43.919 Migraine, unspecified, intractable, without status migrainosus; F32.9 Major depressive disorder, single episode, unspecified; Z90.11 Acquired absence of right breast and nipple; Z79.899 Other long term (current) drug therapy
CPT/HCPCS: 77280; 77332; 99215

== ENCOUNTER 2020-07-25 05:38 | Outpatient (RCR) | payer OTHER, SELFPAY ==
--- NOTE | 2020-06-27 14:17 | ONCRAD TMN_ITS ---
Radiation Oncology Weekly Treatment Management Patient: Dimas Gresham> MR#: [id number] : 1975> Attending Physician: Dr. Sony Love Date of Service: 06/27/2020 Referring Physician(s) : Aniya Solis NP Diagnosis: C50.411 - Malignant neoplasm of upper-outer quadrant of right female breast, Diagnosed 03/07/2020 (Active) Stage IB, T1a, pN0, M0, G3, HER2 Neg, ER Neg, UT N Radiotherapy to date: Course: [id number], Treatment Site: Breast Ca, Ref. ID: [id number], Energy: 15X/6X, Dose/Fx (cGy): 266.7, #Fx: , Dose Correction (cGy): 0, Total Dose (cGy): 533.3, Start Date: 06/26/2020, Elapsed Days: 1 Reason for visit: The patient is being seen today as part of their regularly scheduled weekly on treatment visits to assess for acute toxicities from radiotherapy. Review of Systems: Just began treatment 06/26/2020. Doing well. Active at home. No symptoms noted. Vital Signs: Performed on 06/27/2020 1:56 PM BMI - 38.015 kg/m2 (high), Height - 63.00 in, Weight - 214.6 lbs, Temperature - 97.3 f, Pulse - 86, Respiration - 18, O2 Sat - 97 %, Pain - 0, Fatigue - 0 and BP - 117/ 85 mm(hg). Physical Exam: omitted Imaging: Radiation therapy imaging related to accurate target localization (i.e. KV, MV and CBCT) was reviewed. Appropriate changes, if any, were made to ensure treatment accuracy. Plan: Good tolerance of treatment. Continue as planned. Signed by: Dr. Sony Love 06/27/2020 2:15:45 PM
--- NOTE | 2020-07-05 14:00 | ONCRAD TMN_ITS ---
Radiation Oncology Treatment Management Note Patient Name: Marga Cochran Date of : 1975 Date of Service: 07/05/2020 Attending Physician: Raymond Love M.D. Marga Cochran is a 69 year-old white female diagnosed with pathological stage IB (T1aN0) grade 3 invasive ductal carcinoma of the upper-outer quadrant of the right breast. The breast cancer profile was negative for estrogen receptor, progesterone receptor and HER2. The Ki-67 of 70%. A partial mastectomy with sentinel lymph node biopsy was performed on April 05, 2020 with a re-excision completed on May 07, 2020 attributable to a positive margin. She has received 21.3 Gy of a prescribed 40 Gy delivered in the prone disposition with a 3D conformal radiotherapy plan utilizing opposed tangential portal you. An additional 10 Gy in 5 fractions will be administered to the surgical bed at the conclusion of the whole breast treatment as a consequence of the patient's high-grade tumor characteristics. Upon review of systems, she denied any breast complaints to radiotherapy. On physical examination, the patient weighed 215 lbs. Her temperature was 97.9 ???F with a blood pressure of 116/85 mmHg. Her pulse was 71 bpm and her respiratory rate was 20. There was no erythema within the treatment you of the right breast. Continue right breast radiotherapy as prescribed. Signed by: Dr. Raymond Love 07/05/2020 1:58:35 PM
--- NOTE | 2020-07-11 13:51 | ONCRAD TMN_ITS ---
Radiation Oncology Treatment Management Note Patient Name: Marga Cochran Date of : 1975 Date of Service: 07/11/2020 Attending Physician: Raymond Love M.D. Marga Cochran is a 69 year-old white female diagnosed with pathological stage IB (T1aN0) grade 3 invasive ductal carcinoma of the upper-outer quadrant of the right breast. The breast cancer profile was negative for estrogen receptor, progesterone receptor and HER2. The Ki-67 of 70%. A partial mastectomy with sentinel lymph node biopsy was performed on April 05, 2020 with a re-excision completed on May 07, 2020 attributable to a positive margin. She has received 32 Gy of a prescribed 40 Gy delivered in the prone disposition with a 3D conformal radiotherapy plan utilizing opposed tangential portal you. An additional 10 Gy in 5 fractions will be administered to the surgical bed at the conclusion of the whole breast treatment as a consequence of the patient's high-grade tumor characteristics. Upon review of systems, she denied any breast complaints to radiotherapy. On physical examination, the patient weighed 216 lbs. Her temperature was 97.5 ???F with a blood pressure of 114/79 mmHg. Her pulse was 79 bpm and her respiratory rate was 18. There was no erythema within the treatment you of the right breast. Continue right breast radiotherapy as planned. Signed by: Dr. Raymond Love 07/11/2020 1:50:05 PM
--- NOTE | 2020-07-18 14:05 | ONCRAD TMN_ITS ---
Radiation Oncology Treatment Management Note Patient Name: Marga Cochran Date of : 1975 Date of Service: 07/18/2020 Attending Physician: Raymond Love M.D. Marga Cochran is a 69 year-old white female diagnosed with pathological stage IB (T1aN0) grade 3 invasive ductal carcinoma of the upper-outer quadrant of the right breast. The breast cancer profile was negative for estrogen receptor, progesterone receptor and HER2. The Ki-67 of 70%. A partial mastectomy with sentinel lymph node biopsy was performed on April 05, 2020 with a re-excision completed on May 07, 2020 attributable to a positive margin. She has received 40 Gy of a prescribed 40 Gy delivered in the prone disposition with a 3D conformal radiotherapy plan utilizing opposed tangential portal you. An additional 10 Gy in 5 fractions will be administered to the surgical bed at the conclusion of the whole breast treatment as a consequence of the patient's high-grade tumor characteristics. Upon review of systems, she described discomfort in the right axilla. On physical examination, the patient weighed 216 lbs. Her temperature was 97.5 ???F with a blood pressure of 114/79 mmHg. Her pulse was 79 bpm and her respiratory rate was 18. There was erythema within the right axilla (grade I). Continue right breast radiotherapy as prescribed. She will apply Lidocaine cream to axilla. Signed by: Dr. Raymond Love 07/18/2020 2:02:46 PM
== END 2020-07-26 23:59 | disposition home or self-care (01) ==
LOC: ONCMED 05:38
PROVIDERS: PCP Nurse Practitioner; Visit Provider Radiology Radiation Oncology
DX: Z51.0 Encounter for antineoplastic radiation therapy (principal); C50.411 Malignant neoplasm of upper-outer quadrant of right female breast; Z17.1 Estrogen receptor negative status [ER-]; L58.0 Acute radiodermatitis; Y84.2 Radiological procedure and radiotherapy as the cause of abnormal reaction of the patient, or of later complication, without mention of misadventure at the time of the procedure; Z90.11 Acquired absence of right breast and nipple
CPT/HCPCS: 77295; 77300; 77307; 77334; 77336; 77387; 77412

== ENCOUNTER 2020-08-25 06:17 | Outpatient (RCR) | payer OTHER, SELFPAY ==
--- NOTE | 2020-08-25 11:11 | ONCRAD EPV_ITS ---
Radiation Oncology Follow-Up Note Patient Name: Marga Cochran Date of : 1975 Date of Service: 08/25/2020 Attending Physician: Raymond Love M.D. Marga Cochran returned to my office this morning for a routinely scheduled follow-up appointment. She completed adjuvant radiotherapy in June for the post-operative management of a pathological stage IB (T1a N0) poorly-differentiated ductal carcinoma of the upper-outer quadrant of the right breast. The breast cancer profile was negative for estrogen receptor, progesterone receptor and HER2. The Ki-67 of 70%. A partial mastectomy with sentinel lymph node biopsy was performed on April 05, 2020 with a re-excision completed on May 07, 2020 attributable to a positive margin. Daily radiotherapy was administered between the dates of June 26, 2020 through July 25, 2020. A prescribe dose of 50 Gy was delivered in 20 fractions encompassing 30 elapsed days. On review of systems, she did not report any breast complaints. On physical examination, she weighed 214 lbs and her temperature was 96.6???F. Her blood pressure was 119/79 mmHg. The pulse was 100 bpm and her respiratory rate was 18. Examination of the right breast did not reveal any significant erythema nor hyperpigmentation. In summary, Ms. Cochran returned for a routine post radiotherapy follow-up. She does not have any sequelae from treatment. The patient will continue follow-up with her medical oncologist. Signed by: Dr. Raymond Love 08/25/2020 11:10:02 AM
== END 2020-08-25 23:59 | disposition home or self-care (01) ==
LOC: ONCMED 06:17
PROVIDERS: PCP Nurse Practitioner; Visit Provider Radiology Radiation Oncology
DX: C50.411 Malignant neoplasm of upper-outer quadrant of right female breast (principal); Z17.1 Estrogen receptor negative status [ER-]; Z79.899 Other long term (current) drug therapy
CPT/HCPCS: 99024

== ENCOUNTER 2020-09-14 06:21 | Outpatient (RCR) | payer OTHER, SELFPAY ==
--- NOTE | 2020-09-14 18:45 | ONC FU_ITS ---
Dr. Florez Patient Follow-Up Note Patient: Marga Cochran Unit #: [id number]: 1975 Dicatated By: Adrián Florez M.D.Date of Visit:September 14, 2020 Onc Med Follow-up/Prog Note Chief Complaint: Breast cancer. History of Present Illness: This is a 45 year-old woman with grade 3 infiltrating ductal carcinoma of the right breast, ER/WA negative and HER-2/eugene negative. She had presented with an abnormal screening mammogram. That study, from 01/27/2020, was BI-RADS 0. Findings included an asymmetry measuring 5 mm in the lateral or possibly superior right breast. Additional mammographic views of the right breast on 02/17/2020 showed persistent mass measuring 6 mm in the upper outer quadrant at a posterior dept. Right breast ultrasound showed a hypoechoic mass with hyperechoic border at the 10 o'clock position, 4 to 6 mm some the nipple. It measred 6 x 5 x 6 mm. There was minimal increased vascularity. That lesion was noted to correspond to the mammographic abnormality. A second hypoechoic nodule without shadowing was noted at 10:00, 3 cm from the nipple, measuring 6 x 4 x 5 mm. The findings were BI-RADS 4, suspicious, and biopsy was recommended. On 03/06/2020 she underwent ultrasound-guided biopsy of both right breast lesions. Pathology on the 10:00 mass at 4 to 5 cm from the nipple showed grade 3 infiltrating ductal carcinoma. Lymphovascular invasion was identified. 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 The breast prognostic profile showed ER negative <1% and WA negative <1%. The tumor was negative for overexpression of HER-2/eugene, 1+ by IHC and amplification ratio by FISH of 1.1 with 1.3 HER-2 copies/cell. The Ki-67 was unfavorable at 70%. Pathology on the lesion 3 cm from the nipple showed benign breast tissue with stromal sclerosis. There was no malignancy identified. I had seen her initially on 03/22/2020. She opted to proceed with breast conservation management. On 04/05/2020 she underwent right breast lumpectomy with axillary sentinel lymph node biopsy. Pathology showed grade 3 invasive ductal carcinoma. The largest focus measured 0.4 cm. There was a minor component of ductal carcinoma in situ. The anterior margin was reported to be focally positive. All other margins were negative. There was no involvement in 1 sentinel lymph node. She underwent reexcision lumpectomy on 05/15/2020. There is no residual carcinoma identified. In the meantime, I had also recommended genetic screening. 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 There was no evidence for a BRCA mutation. With a triple negative cancer and a high Ki-67 index, I had recommended adjuvant chemotherapy with 4 cycles of cyclophosphamide/docetaxel. She has had done some additional research on her own, and ultimately she declined the adjuvant chemotherapy. She then began radiation to the right breast on 06/26/2020. She completed treatment on 07/25/2020 to a total dose of 5000 cGy. This included 15 daily fractions of 266.7 centigrade followed by a boost of 5 daily fractions at 200 cGy. She is seen for a follow-up visit. She says her energy is still a little low following the radiation, and she does feel tired a lot. She is doing light work. ECOG score is 1. Her appetite is good. She has not had fever. She does have hot flashes in the evenings. She has some sinus drainage and a little bit of sore throat. She also has been a little short of breath at times. She does not complain of cough and she has not been having chest pain. She has no GI/ complaints other than occasional acid reflux. She has some chronic fibromyalgia pain which is the same. She has headaches, which are the same as always. She occasionally has dizziness, and she sometimes has numbness in her hands. She has been having trouble falling asleep. She has some depression, but no worse than normal. Medications: Amitriptyline HCl 1 Tablet (of 75 mg) Oral daily, Claritin 1 Tablet (of 10 mg) Oral daily, Ibuprofen 1 Tablet (of 600 mg) Oral daily PRN, Venlafaxine HCl ER 1 Capsule (of 150 mg) Capsule SR 24 HR Oral daily Allergies: Red dye Vital Signs: Performed on September 14, 2020 09:57 Height - 63.00 in Weight - 216 lbs (HIGH) BSA - 2.00 sq.m BMI - 38.26 (HIGH) Temperature - 97.2 F (LOW) Pulse - 98 /min Respiration - 18 /min BP - 112/76 mm(hg) O2 Sat - 99 % Pain - 2 Fatigue - 2 Physical Examination: Constitutional - She looks pretty good generally, Eyes - Sclerae nonicteric. Conjunctivae clear, ENMT - No lesions noted in the oral cavity, Hematologic/Lymphatic - No cervical, clavicular, or axillary adenopathy, Respiratory - Lungs are clear with good air movement bilaterally, Cardiovascular - Heart rhythm is regular. There is no murmur, gallop, or rub noted, Abdomen - Soft. Liver and spleen are not enlarged. There is no abdominal mass or ascites noted and there is no inguinal adenopathy, Extremities - No edema, Neurologic - No focal neurologic deficits noted. Problem List: 1. Grade 3 infiltrating ductal carcinoma of the right breast, stage IB (T1b, pN0, M0), ER/WA negative and HER-2/eugene negative. She underwent ultrasound directed biopsy of the right breast on 03/06/2020 followed by right breast lumpectomy and sentinel axillary lymph node biopsy on 04/05/2020 and by reexcision lumpectomy on 05/15/2020. 2. Fibromyalgia. 3. Chronic headache. 4. Depression. Problems Addressed with this Encounter and Plan: Patient with grade 3 infiltrating ductal carcinoma of the right breast, stage IB (T1b, pN0, M0), ER/WA negative and HER-2/eugene negative. She underwent ultrasound directed biopsy of the right breast on 03/06/2020 followed by right breast lumpectomy and sentinel axillary lymph node biopsy on 04/05/2020 and by reexcision lumpectomy on 05/15/2020. There is some uncertainty of the staging due to the small size of her primary tumor, but I estimated it to be a T1b lesion based on the size of the initial biopsy specimen, which was almost completely involved, and the residual tumor in the lumpectomy specimen measuring 0.4 cm. Despite the small size of her primary tumor, with triple negative disease and a high Ki-67 index, I did recommend adjuvant chemotherapy with 4 cycles of cyclophosphamide docetaxel. After additional research on her own, she declined chemotherapy. She then underwent radiation to the right breast, completed on 07/25/2020 to a total dose of 5000 cGy. She is still having some fatigue following the radiation. She is also having some hot flashes. She has fibromyalgia pain and headaches, both of which are chronic. Overall, though, she appears to be doing well clinically. She will continue expectant management for the breast cancer. I will see her again in 3 months. She will have laboratory studies with that visit including CBC, comprehensive metabolic profile, 25-hydroxy vitamin D level, and TSH level. Signed By: Adrián Florez M.D. <<Signature on File>>
== END 2020-09-25 23:59 | disposition home or self-care (01) ==
LOC: ONCMED 06:21
PROVIDERS: PCP Nurse Practitioner; Visit Provider Internal Medicine Medical Oncology
DX: Z08 Encounter for follow-up examination after completed treatment for malignant neoplasm (principal); Z85.3 Personal history of malignant neoplasm of breast; Z90.11 Acquired absence of right breast and nipple; M79.7 Fibromyalgia; G43.919 Migraine, unspecified, intractable, without status migrainosus; F32.9 Major depressive disorder, single episode, unspecified; Z79.899 Other long term (current) drug therapy; Z92.3 Personal history of irradiation
CPT/HCPCS: G0463

== ENCOUNTER 2020-11-06 10:02 | Emergency (ER) | payer OTHER, SELFPAY ==
--- NOTE | 2020-11-06 | CT_ITS ---
jono bashir 01 21 1975 CTA OF THE CHEST WITH PULMONARY EMBOLISM PROTOCOL TECHNIQUE: High-resolution contrast enhanced CTA of the chest with coronal and sagittal reformatted images with pulmonary embolism protocol. MIP images are also reviewed. CLINICAL INFORMATION: Chest pain shortness of breath COMPARISON: None. DLP: All CT scans at [facility] use at least one of these dose optimization techniques: automated exposure control; mA and/or kV adjustment per patient size (includes targeted exams where dose is matched to clinical indication); or iterative reconstruction. FINDINGS: Proximal main pulmonary arteries are normal. Segmental and subsegmental pulmonary arteries are normal. No evidence of pulmonary embolus. Normal caliber thoracic aorta. Bilateral perihilar bronchovascular thickening and reactive hilar lymph nodes. Compressive atelectasis in the lung bases. Bilateral perihilar and upper lobe groundglass infiltrates suspicious for COVID19 pneumonia. IMPRESSION: 1. No evidence for pulmonary embolus. 2. Bilateral perihilar and upper lobe groundglass infiltrates suspicious for COVID 19 pneumonia 3. Compressive atelectasis in the lung bases. MTDD
[2020-11-06 10:11] VITALS: BP 110/78; PULSE 110; RESP 20; TEMP 37.1; O2SAT 91; BMI 38.0
--- NOTE | 2020-11-06 10:45 | PC.NURSE ---
PATIENT ARRIVED IN ROOM FROM WAITING ROOM AT 1040.
--- NOTE | 2020-11-06 10:54 | W.ED.COVID ---
HPI - COVID General: Chief Complaint: Shortness of Breath/Dyspnea Stated Complaint: COVID +/SOB/LOW O2 Time Seen by Provider: 11/06/20 10:44 Triage information: Has fever, cough or shortness of breath. Exposure to COVID + person last 14 days History of Present Illness: HPI Narrative: 45-year-old female presents emergency room complaining of shortness of breath. Patient tested positive for Covid on 7 5 and had oxygen levels at home this morning that were tracking in the mid 80s consistently. She arrived here she is 91% on room air. She states over the weekend she began consistently having increasing shortness of breath with any activities. She is not diabetic not hypertensive. Not obese. MD complaint: known COVID positive Prior covid testing: yes, results known Prior testing date: 10/30/20 COVID 19 common symptoms: positive fever(s), chills, cough, non-productive cough, dyspnea, fatigue, body aches, throat pain, nasal congestion, nausea and diarrhea COVID 19 other sytmptoms: positive requiring oxygen; negative chest pain Treatment prior to arrival: acetaminophen and ibuprofen COVID Results: Nasal/Oral Coronavirus 2019 PCR Not detected 05/10/20 08:51 05/10/20 Review of Systems Const: Reports: fever(s), chills, body aches and fatigue ENMT: Reports: throat pain and nasal congestion Card: Denies: chest pain, edema, dyspnea on exertion or orthopnea Resp: Reports: dyspnea and non-productive cough GI: Reports: nausea and diarrhea : Denies: flank pain, difficulty voiding, dysuria, urinary frequency or urinary urgency Skin/Breast: Denies: rash or pruritus [facility] ED PFSH: Medical History (Updated 11/06/20 @ 12:25 by Felice Trejo DO) Breast cancer, right breast Stage Ib [T1aN0} COVID-19 Depression Fibromyalgia Migraine Surgical History S/P breast lumpectomy (05/15/20) reexcision of anterior margin Status post right breast lumpectomy (04/05/20) sentinel lymph node biopsy Family History Denies family history of Anesthesia complication Bleeding disorder Social History Smoking and tobacco status: never smoked Alcohol intake: current Alcohol intake frequency: holidays/special occasions only Adopted: No Caregiver/support person: Yes Lives independently: Yes Household members: spouse and children Housing: House Marital status: service: No Current occupational status: employed Pets and animals: No History of recent travel: No Sexually active: Yes Current gender identity: Female Mary/Episcopal: Baptism Special mary needs: No Physical Exam Const: COMMON NORMALS: no acute distress GENERAL APPEARANCE: cooperative and comfortable ORIENTATION/CONSCIOUSNESS: Yes awake, Yes oriented to person, Yes oriented to place and Yes oriented to time HENMT: COMMON NORMALS: normocephalic, atraumatic, hearing grossly normal bilaterally and external ears normal HEAD & SCALP: normocephalic and atraumatic EXTERNAL EAR: Yes external ears normal Neck/C-Spine: COMMON NORMALS: no JVD Resp: COMMON NORMALS: normal respiratory effort, No retractions and No use of accessory muscles AUSCULTATION: wheezes Cardio: COMMON NORMALS: no JVD, regular rate, regular rhythm and No murmurs present (Cardio) RATE: regular rate RHYTHM: regular rhythm GI: COMMON NORMALS: Soft to palpation and No hepatosplenomegaly present AUSCULTATION: Yes normoactive bowel sounds PALPATION: Yes Soft to palpation, No Tenderness to palpation present (GI), No Guarding due to palpation present (GI) and Yes No hepatosplenomegaly present Extremity: COMMON NORMALS: normal to inspection, capillary refill normal, no clubbing, cyanosis or edema, no calf tenderness and no pedal edema Neuro: SENSORIUM/ORIENTATION: Yes oriented to person, Yes oriented to place and Yes oriented to time Skin: COMMON NORMALS: no rashes or lesions noted GENERAL SKIN EXAM: no rashes or lesions noted Course Vital Signs: Vital signs: Vital Signs Temperature 98.4 F 11/06/20 11:06 Pulse Rate 87 11/06/20 12:00 Respiratory Rate 15 11/06/20 12:00 Blood Pressure 120/71 11/06/20 12:00 Pulse Oximetry 88 L 11/06/20 12:28 MDM - COVID MDM Narrative: Medical decision making narrative: CT shows evidence of Covid pneumonitis but no evidence of PE patient sat is good with oxygen support will discharge home on dexamethasone and home O2 continue to monitor sats return if has worsening problems Lab Data: Labs: Lab Results 11/06/20 11/06/20 Range/Units 11:00 11:00 WBC 3.0 L (4.0-10.0) 10^3/ uL RBC 4.28 (4.1-5.3) 10^6/u L Hgb 12.8 (11.5-15.3) g/dL Hct 39.4 (37.0-47.0) % MCV 92.1 (81-99) fL MCH 29.9 (28.0-34.0) pg MCHC 32.5 (30.0-36.0) g/dL RDW 12.6 (12.1-15.1) % Plt Count 148 (130-400) 10^3/c mm MPV 9.3 (7.4-10.4) fL Neut % (Auto) 84.3 % Lymph % (Auto) 10.5 % [place] % (Auto) 4.6 % Eos % (Auto) 0.0 % Baso % (Auto) 0.3 % Neut # (Auto) 2.56 (1.8-7.7) 10^3/u L Lymph # (Auto) 0.3 L (0.8-4.8) 10^3/u L [place] # (Auto) 0.1 L (0.2-0.9) 10^3/u L Eos # (Auto) 0.0 (0.0-0.8) 10^3/u L Baso # (Auto) 0.0 (0.0-0.1) 10^3/u L Nucleated RBC % (a uto) 0 % Nucleated RBCs # 0.0 /100WBC Sodium 140 (136-145) mmol/L Potassium 3.8 (3.5-5.1) mmol/L Chloride 103 (98-107) mmol/L Carbon Dioxide 28 (22-29) mmol/L Anion Gap 12.8 (5-19) BUN 8 (6-20) mg/dL Creatinine 0.7 (0.5-0.9) mg/dL GFR Calculation 89.7 L (90-130) mL/min Glucose 97 (65-115) mg/dL Calculated Osmolal ity 288 (285-295) mOsm/k g Calcium 8.1 L (8.5-10.5) mg/dL COVID Results: Nasal/Oral Coronavirus 2019 PCR Not detected 05/10/20 08:51 05/10/20 Discharge Plan Discharge Patient Disposition: Home Clinical Impression: COVID-19 Condition: Stable Prescriptions: New dexamethasone 6 mg tablet 6 mg PO DAILY Qty: 7 RF: 0 No Action amitriptyline 75 mg tablet 75 mg PO BEDTIME RF: 0 loratadine [Claritin] 10 mg tablet 10 mg PO QAM RF: 0 ibuprofen 600 mg tablet 600 mg PO Q8H PRN (Reason: Pain) RF: 0 venlafaxine 150 mg capsule,extended release 24hr 150 mg PO QAM RF: 0 Mucinex Fast-Max Severe Cold 10-20-650 mg/20 mL Liquid 20 ml PO Q4H PRN (Reason: Cough) RF: 0 Discharge Orders: Discharge ED (Routine); Ordered 11/06/20 Ordered By: Felice Trejo Other Ambulatory Orders: DME: Oxygen (Order) Location: None Selected Ordered By: Felice Trejo Referrals: Aniya Solis APN [Primary Care Provider] - Discharge Diet: Usual diet Discharge Activity: Resume usual activity Patient Instructions: Opioid Safety Coding Level of Care Code 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
[2020-11-06 11:06] VITALS: BP 114/75; PULSE 99; RESP 15; TEMP 36.9; O2SAT 95
[2020-11-06 11:22] LABS: Basophils % 0.3 %; Hematocrit 39.4 % (37.0-47.0); Hemoglobin 12.8 g/dL (11.5-15.3); Lymphocytes # 0.3 10^3/uL (0.8-4.8); Lymphocytes % 10.5 %; Mean Corpuscular HGB Conc 32.5 g/dL (30.0-36.0); Mean Corpuscular Hemoglobin 29.9 pg (28.0-34.0); Mean Corpuscular Volume 92.1 fL (81-99); Mean Platelet Volume 9.3 fL (7.4-10.4); Monocytes # 0.1 10^3/uL (0.2-0.9); Monocytes % 4.6 %; Neutrophils # 2.56 10^3/uL (1.8-7.7); Neutrophils % 84.3 %; Nucleated Red Blood Cells % 0 %; Platelet Count 148 10^3/cmm (130-400); Positive M 1; Red Blood Count 4.28 10^6/uL (4.1-5.3); Red Cell Distribution Width 12.6 % (12.1-15.1)
[2020-11-06 11:36] LABS: Slide Review Slide Review Perform
[2020-11-06 11:43] LABS: Anion Gap 12.8 (5-19); Blood Urea Nitrogen 8 mg/dL (6-20); Calcium 8.1 mg/dL (8.5-10.5); Carbon Dioxide 28 mmol/L (22-29); Chloride 103 mmol/L (98-107); Glomerular Filtration Rate 89.7 mL/min (90-130); Glucose 97 mg/dL (65-115); Osmolality Calculated 288 mOsm/kg (285-295); Potassium 3.8 mmol/L (3.5-5.1); Sodium 140 mmol/L (136-145)
[2020-11-06] MEDS: iohexol 350 mg/mL 100 mL Btl IV (11:46)
[2020-11-06 12:00] VITALS: BP 120/71; PULSE 87; RESP 15; O2SAT 97
[2020-11-06 12:28] VITALS: O2SAT 88
[2020-11-06 13:02] VITALS: BP 113/78; PULSE 90; RESP 15; O2SAT 96
[2020-11-06 13:37] VITALS: BP 113/78; PULSE 78; RESP 15; O2SAT 96
== END 2020-11-06 13:39 | disposition home or self-care (01) ==
PROVIDERS: Emergency Provider Family Medicine; PCP Nurse Practitioner
DX: U07.1 COVID-19 (principal); Z85.3 Personal history of malignant neoplasm of breast
CPT/HCPCS: 71275; 80048; 85025; 99283; Q9967

== ENCOUNTER 2020-12-26 10:45 | Outpatient (CLI) | payer OTHER, SELFPAY ==
[2020-12-26 11:33] LABS: Eosinophils # 0.3 10^3/uL (0.0-0.8); Eosinophils % 6.4 %; Hematocrit 42.2 % (37.0-47.0); Hemoglobin 13.6 g/dL (11.5-15.3); Lymphocytes % 24.8 %; Mean Corpuscular HGB Conc 32.2 g/dL (30.0-36.0); Mean Corpuscular Hemoglobin 30.1 pg (28.0-34.0); Mean Corpuscular Volume 93.4 fl (81-99); Mean Platelet Volume 9.1 fL (7.4-10.4); Monocytes # 0.5 10^3/uL (0.2-0.9); Monocytes % 12.3 %; Neutrophils # 2.26 10^3/uL (1.8-7.7); Neutrophils % 55.3 %; Nucleated Red Blood Cells % 0 %; Platelet Count 182 10^3/cmm (130-400); Red Blood Count 4.52 10^6/uL (4.1-5.3); Red Cell Distribution Width 13.6 % (12.1-15.1); White Blood Count 4.1 10^3/uL (4.0-10.0)
[2020-12-26 12:25] LABS: 25 Hydroxy Vitamin D 40 ng/mL (30-100); Alanine Aminotransferase 40 U/L (0-33); Albumin Level 4.3 g/dL (3.5-5.2); Alkaline Phosphatase 100 IU/L (35-105); Anion Gap 13.9 (5-19); Aspartate Amino Transferase 34 U/L (0-32); Blood Urea Nitrogen 14 mg/dL (6-20); Calcium 9.3 mg/dL (8.5-10.5); Carbon Dioxide 26 mmol/L (22-29); Chloride 102 mmol/L (98-107); Glomerular Filtration Rate 76.9 mL/min (90-130); Glucose 103 mg/dL (65-115); Osmolality Calculated 287 mOsm/kg (285-295); Potassium 3.9 mmol/L (3.5-5.1); Sodium 138 mmol/L (136-145); Thyroid Stimulating Hormone 2.16 uIU/mL (0.27-4.20); Total Bilirubin 0.2 mg/dL (0.15-1.2); Total Protein 7.3 g/dL (6.6-8.7)
--- NOTE | 2020-12-30 10:25 | ONC FU_ITS ---
Dr. Florez Patient Follow-Up Note Patient: Marga Cochran Unit #: [id number]: [id number] Dicatated By: Adrián Florez M.D.Date of Visit:Dec 26, 2020 Onc Med Follow-up/Prog Note Chief Complaint: Breast cancer. History of Present Illness: This is a 45 year-old woman with grade 3 infiltrating ductal carcinoma of the right breast, ER/AR negative and HER-2/eugene negative. She had presented with an abnormal screening mammogram. That study, from 01/27/2020, was BI-RADS 0. Findings included an asymmetry measuring 5 mm in the lateral or possibly superior right breast. Additional mammographic views of the right breast on 02/17/2020 showed persistent mass measuring 6 mm in the upper outer quadrant at a posterior dept. Right breast ultrasound showed a hypoechoic mass with hyperechoic border at the 10 o'clock position, 4 to 6 mm some the nipple. It measred 6 x 5 x 6 mm. There was minimal increased vascularity. That lesion was noted to correspond to the mammographic abnormality. A second hypoechoic nodule without shadowing was noted at 10:00, 3 cm from the nipple, measuring 6 x 4 x 5 mm. The findings were BI-RADS 4, suspicious, and biopsy was recommended. On 03/06/2020 she underwent ultrasound-guided biopsy of both right breast lesions. Pathology on the 10:00 mass at 4 to 5 cm from the nipple showed grade 3 infiltrating ductal carcinoma. Lymphovascular invasion was identified. 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 The breast prognostic profile showed ER negative <1% and AR negative <1%. The tumor was negative for overexpression of HER-2/eugene, 1+ by IHC and amplification ratio by FISH of 1.1 with 1.3 HER-2 copies/cell. The Ki-67 was unfavorable at 70%. Pathology on the lesion 3 cm from the nipple showed benign breast tissue with stromal sclerosis. There was no malignancy identified. I had seen her initially on 03/22/2020. She opted to proceed with breast conservation management. On 04/05/2020 she underwent right breast lumpectomy with axillary sentinel lymph node biopsy. Pathology showed grade 3 invasive ductal carcinoma. The largest focus measured 0.4 cm. There was a minor component of ductal carcinoma in situ. The anterior margin was reported to be focally positive. All other margins were negative. There was no involvement in 1 sentinel lymph node. She underwent reexcision lumpectomy on 05/15/2020. There is no residual carcinoma identified. In the meantime, I had also recommended genetic screening. 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 There was no evidence for a BRCA mutation. With a triple negative cancer and a high Ki-67 index, I had recommended adjuvant chemotherapy with 4 cycles of cyclophosphamide/docetaxel. She has had done some additional research on her own, and ultimately she declined the adjuvant chemotherapy. She then began radiation to the right breast on 06/26/2020. She completed treatment on 07/25/2020 to a total dose of 5000 cGy. This included 15 daily fractions of 266.7 centigrade followed by a boost of 5 daily fractions at 200 cGy. She was then followed on expectant management. Her other medical illnesses include fibromyalgia, chronic headaches, and depression. She is a non-smoker. She is seen for a follow-up visit. She indicates that she was diagnosed with COVID-19 virus infection in early to mid October. She was ill enough that she required oxygen, but she recovered uneventfully. She still has some residual fatigue, but her energy is getting better. ECOG score is 1. Her appetite is fine. She has not had fever. She does have hot flashes and sweating. She has some sinus drainage and she still has some cough, though it is getting better. She also still has some shortness of breath with activity, but her breathing is pretty good now. She does not complain of chest pain. She has no GI or complaints other than some acid reflux, but that is not any worse than normal. She says she always has some pain with her fibromyalgia, and that also is not any worse. Her headaches are about the same. She was having dizziness, that is better now. She has numbness in her hands a lot, but that has been going on for a long time. Her depression is adequately managed with medication. Medications: Amitriptyline HCl 1 Tablet (of 75 mg) Oral daily, Claritin 1 Tablet (of 10 mg) Oral daily, Ibuprofen 1 Tablet (of 600 mg) Oral daily PRN, Venlafaxine HCl ER 1 Capsule (of 150 mg) Capsule SR 24 HR Oral daily Allergies: Red dye Vital Signs: Performed on Dec 26, 2020 15:10 Height - 63.00 in Weight - 211.6 lbs (LOW) BSA - 1.98 sq.m BMI - 37.48 (HIGH) Temperature - 98.9 F (HIGH) Pulse - 106 /min (HIGH) Respiration - 18 /min BP - 125/83 mm(hg) O2 Sat - 96 % Pain - 0 Fatigue - 3 Physical Examination: Constitutional - She looks pretty good generally, Eyes - Sclerae nonicteric. Conjunctivae clear, ENMT - No lesions noted in the oral cavity, Hematologic/Lymphatic - No cervical, clavicular, or axillary adenopathy, Respiratory - Lungs are clear with good air movement bilaterally, Cardiovascular - Heart rhythm is regular. There is no murmur, gallop, or rub noted, Abdomen - Soft. Liver and spleen are not enlarged. There is no abdominal mass or ascites noted and there is no inguinal adenopathy, Extremities - No edema, Neurologic - No focal neurologic deficits noted. Lab/Imaging: Test performed on Dec 26, 2020 11:08 Sodium 138 mmol/L TSH 2.16 uIU/mL Vitamin D (25-Hydroxy), Total 40 ng/mL Potassium 3.9 mmol/L Chloride 102 mmol/L CO2 26 mmol/L Anion Gap 13.9 BUN 14 mg/dL Creatinine 0.8 mg/dL Cr Clearance (Est) 131.73 mL/min eGFR 76.9 mL/min Glucose 103 mg/dL Osmolality - Calculated 287 mOsm/kg Calcium 9.3 mg/dL Protein, Total 7.3 g/dL Albumin 4.3 g/dL Globulin 3.0 g/dL Bilirubin, Total 0.2 mg/dL ALT (SGPT) 40 U/L AST (SGOT) 34 U/L Alkaline Phosphatase 100 IU/L WBC 4.1 10 3/uL RBC 4.52 10 6/uL HGB 13.6 g/dL HCT 42.2 % MCV 93.4 fl MCH 30.1 pg MCHC 32.2 g/dL RDW 13.6 % Platelet Count 182 10 3/cmm MPV 9.1 fL Neutrophils 2.26 10 3/uL Lymphocytes 1.0 10 3/uL Monocytes 0.5 10 3/uL Eosinophils 0.3 10 3/uL Basophils 0.0 10 3/uL Neutrophil % 55.3 % Lymphocyte % 24.8 % Monocyte % 12.3 % Eosinophil % 6.4 % Basophils % 1.0 % NRBC % 0 % Problem List: 1. Grade 3 infiltrating ductal carcinoma of the right breast, stage IB (T1b, pN0, M0), ER/AR negative and HER-2/eugene negative. She underwent ultrasound directed biopsy of the right breast on 03/06/2020 followed by right breast lumpectomy and sentinel axillary lymph node biopsy on 04/05/2020 and by reexcision lumpectomy on 05/15/2020. 2. Fibromyalgia. 3. Chronic headache. 4. Depression. Problems Addressed with this Encounter and Plan: Patient with grade 3 infiltrating ductal carcinoma of the right breast, stage IB (T1b, pN0, M0), ER/AR negative and HER-2/eugene negative. She underwent ultrasound directed biopsy of the right breast on 03/06/2020 followed by right breast lumpectomy and sentinel axillary lymph node biopsy on 04/05/2020 and by reexcision lumpectomy on 05/15/2020. There is some uncertainty of the staging due to the small size of her primary tumor, but I estimated it to be a T1b lesion based on the size of the initial biopsy specimen, which was almost completely involved, and the residual tumor in the lumpectomy specimen measuring 0.4 cm. Despite the small size of her primary tumor, with triple negative disease and a high Ki-67 index, I did recommend adjuvant chemotherapy with 4 cycles of cyclophosphamide docetaxel. After additional research on her own, she declined chemotherapy. She then underwent radiation to the right breast, completed on 07/25/2020 to a total dose of 5000 cGy. She was having fatigue following completion of the radiation. Her further clinical course was complicated by COVID-19 virus infection in October. She was significantly symptomatic with that illness, but she does appear to be showing uneventful recovery. Overall, she appears to be doing pretty well, thus far with no evidence of recurrence of the breast cancer. She continues on expectant management. I will see her again in 6 months. Signed By: Adrián lForez M.D. <<Signature on File>>
== END 2020-12-26 10:46 | disposition home or self-care (01) ==
LOC: ONCMED 10:50
PROVIDERS: PCP Nurse Practitioner; Visit Provider Internal Medicine Medical Oncology
DX: Z08 Encounter for follow-up examination after completed treatment for malignant neoplasm (principal); Z85.3 Personal history of malignant neoplasm of breast; Z92.3 Personal history of irradiation; Z90.11 Acquired absence of right breast and nipple
CPT/HCPCS: 36415; 80053; 82306; 84443; 85025; G0463

== ENCOUNTER 2021-02-07 09:46 | Outpatient (CLI) | payer OTHER, SELFPAY ==
--- NOTE | 2021-02-07 09:51 | MM_ITS ---
WS: [id number] BILATERAL DIGITAL DIAGNOSTIC MAMMOGRAM MAMMOGRAPHY WITH CAD CLINICAL INFORMATION: HX OF BREAST CA COMPARISON: February 17, 2020 TECHNIQUE: Bilateral CC, MLO, and ML views. FINDINGS: The breasts are composed of heterogeneous fibroglandular density, which can limit the detection of sm all underlying mass lesions. Postoperative changes lumpectomy upper outer right breast with surgical clips and parenchymal scarring. No suspicious focal mass, asymmetry, calcifications, or architectural distortion. No evidence of jorge l gnancy. MM/[place] [id number] IMPRESSION: BI-RADS: 2-Benign FOLLOW UP: 1 Year Follow-up Recommend return to annual diagnostic mammography.
== END 2021-02-07 09:47 | disposition home or self-care (01) ==
LOC: RADSHAW 09:49
PROVIDERS: PCP Nurse Practitioner; Visit Provider Internal Medicine Medical Oncology
DX: Z85.3 Personal history of malignant neoplasm of breast (principal); C50.411 Malignant neoplasm of upper-outer quadrant of right female breast; Z17.1 Estrogen receptor negative status [ER-]
CPT/HCPCS: 77066

== ENCOUNTER 2021-06-28 12:20 | Outpatient (CLI) | payer OTHER, SELFPAY ==
--- NOTE | 2021-07-01 12:54 | ONC FU_ITS ---
Dr. Florez Patient Follow-Up Note Patient: Marga Cochran Unit #: [id number]: [id number] Dicatated By: Adrián Florez M.D.Date of Visit:Jun 28, 2021 Onc Med Follow-up/Prog Note Chief Complaint: Breast cancer. History of Present Illness: This is a 46 year-old woman with grade 3 infiltrating ductal carcinoma of the right breast, ER/VA negative and HER-2/eugene negative. She had presented with an abnormal screening mammogram. That study, from 01/27/2020, was BI-RADS 0. Findings included an asymmetry measuring 5 mm in the lateral or possibly superior right breast. Additional mammographic views of the right breast on 02/17/2020 showed persistent mass measuring 6 mm in the upper outer quadrant at a posterior dept. Right breast ultrasound showed a hypoechoic mass with hyperechoic border at the 10 o'clock position, 4 to 6 mm some the nipple. It measred 6 x 5 x 6 mm. There was minimal increased vascularity. That lesion was noted to correspond to the mammographic abnormality. A second hypoechoic nodule without shadowing was noted at 10:00, 3 cm from the nipple, measuring 6 x 4 x 5 mm. The findings were BI-RADS 4, suspicious, and biopsy was recommended. On 03/06/2020 she underwent ultrasound-guided biopsy of both right breast lesions. Pathology on the 10:00 mass at 4 to 5 cm from the nipple showed grade 3 infiltrating ductal carcinoma. Lymphovascular invasion was identified. 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 The breast prognostic profile showed ER negative <1% and VA negative <1%. The tumor was negative for overexpression of HER-2/eugene, 1+ by IHC and amplification ratio by FISH of 1.1 with 1.3 HER-2 copies/cell. The Ki-67 was unfavorable at 70%. Pathology on the lesion 3 cm from the nipple showed benign breast tissue with stromal sclerosis. There was no malignancy identified. I had seen her initially on 03/22/2020. She opted to proceed with breast conservation management. On 04/05/2020 she underwent right breast lumpectomy with axillary sentinel lymph node biopsy. Pathology showed grade 3 invasive ductal carcinoma. The largest focus measured 0.4 cm. There was a minor component of ductal carcinoma in situ. The anterior margin was reported to be focally positive. All other margins were negative. There was no involvement in 1 sentinel lymph node. She underwent reexcision lumpectomy on 05/15/2020. There is no residual carcinoma identified. In the meantime, I had also recommended genetic screening. 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 There was no evidence for a BRCA mutation. With a triple negative cancer and a high Ki-67 index, I had recommended adjuvant chemotherapy with 4 cycles of cyclophosphamide/docetaxel. She had then done some additional research on her own, and ultimately she declined the adjuvant chemotherapy. She then began radiation to the right breast on 06/26/2020. She completed treatment on 07/25/2020 to a total dose of 5000 cGy. This included 15 daily fractions of 266.7 centigrade followed by a boost of 5 daily fractions at 200 cGy. She was then followed on expectant management. Her other medical illnesses include fibromyalgia, chronic headaches, and depression. She is a non-smoker. She is seen for a follow-up visit. She has been feeling pretty good generally. Her main complaint is that she had recently sustained an injury to the left lower back after falling on the ice. It seemed to be getting better, but then got worse again. The pain is significant enough that it is limiting her activity. Her ECOG score is 1. She has good appetite. She has not had fever. She has been having hot flashes and sweating. She has some sinus drainage and she sometimes has sore throat. She does not complain of cough. She says her breathing is better. She has not been having chest pain. She has some acid reflux and she has problems with bowel function, but that is chronic. She has no complaints. She has no other joint or bone pain. She has a lot of headaches. She has some numbness in her left hand. Medications: Amitriptyline HCl 1 Tablet (of 75 mg) Oral daily, Claritin 1 Tablet (of 10 mg) Oral daily, Ibuprofen 1 Tablet (of 600 mg) Oral daily PRN, Venlafaxine HCl ER 1 Capsule (of 150 mg) Capsule SR 24 HR Oral daily Allergies: Red dye Vital Signs: Performed on Jun 28, 2021 13:13 Height - 63.00 in Weight - 210.2 lbs (LOW) BSA - 1.98 sq.m BMI - 37.24 (HIGH) Temperature - 98.3 F (LOW) Pulse - 105 /min (HIGH) Respiration - 18 /min BP - 138/84 mm(hg) O2 Sat - 99 % Pain - 5 Fatigue - 3 Physical Examination: Constitutional - She looks pretty good generally, Eyes - Sclerae nonicteric. Conjunctivae clear, ENMT - No lesions noted in the oral cavity, Hematologic/Lymphatic - No cervical or clavicular adenopathy, Respiratory - Lungs are clear with good air movement bilaterally, Cardiovascular - Heart rhythm is regular. There is no murmur, gallop, or rub noted, Breasts - There are no breast masses noted. There is no axillary adenopathy, Abdomen - Soft. Liver and spleen are not enlarged. There is no abdominal mass or ascites noted and there is no inguinal adenopathy, Extremities - No edema, Neurologic - No focal neurologic deficits noted. Problem List: 1. Grade 3 infiltrating ductal carcinoma of the right breast, stage IB (T1b, pN0, M0), ER/VA negative and HER-2/eugene negative. She underwent ultrasound directed biopsy of the right breast on 03/06/2020 followed by right breast lumpectomy and sentinel axillary lymph node biopsy on 04/05/2020 and by reexcision lumpectomy on 05/15/2020. 2. Fibromyalgia. 3. Chronic headache. 4. Depression. Problems Addressed with this Encounter and Plan: Patient with grade 3 infiltrating ductal carcinoma of the right breast, stage IB (T1b, pN0, M0), ER/VA negative and HER-2/eugene negative. She underwent ultrasound directed biopsy of the right breast on 03/06/2020 followed by right breast lumpectomy and sentinel axillary lymph node biopsy on 04/05/2020 and by reexcision lumpectomy on 05/15/2020. There is some uncertainty of the staging due to the small size of her primary tumor, but I estimated it to be a T1b lesion based on the size of the initial biopsy specimen, which was almost completely involved, and the residual tumor in the lumpectomy specimen measuring 0.4 cm. Despite the small size of her primary tumor, with triple negative disease and a high Ki-67 index, I did recommend adjuvant chemotherapy with 4 cycles of cyclophosphamide docetaxel. After additional research on her own, she declined chemotherapy. She then underwent radiation to the right breast, completed on 07/25/2020 to a total dose of 5000 cGy. She was having fatigue following completion of the radiation. Her further clinical course was complicated by COVID-19 virus infection in October 2020, but she recovered uneventfully. She has since then been doing well other than having recently sustained a minor back injury after falling on the ice. Thus far there has been no evidence of recurrence of the breast cancer. She continues on expectant management. I will see her again in 6 months. Signed By: Adrián Florez M.D. <<Signature on File>>
== END 2021-06-28 12:21 | disposition home or self-care (01) ==
LOC: ONCMED 12:24
PROVIDERS: PCP Nurse Practitioner; Visit Provider Internal Medicine Medical Oncology
DX: C50.911 Malignant neoplasm of unspecified site of right female breast (principal); Z17.1 Estrogen receptor negative status [ER-]; M79.7 Fibromyalgia; F32.A Depression, unspecified; Z86.16 Personal history of COVID-19; Z79.899 Other long term (current) drug therapy
CPT/HCPCS: G0463

== ENCOUNTER 2022-02-20 14:00 | Oncology outpatient (recurring) (ONCR) | payer OTHER, SELFPAY ==
--- NOTE | 2022-02-20 14:10 | MM_ITS ---
WS: [id number] BILATERAL 3D TOMOSYNTHESIS DIGITAL DIAGNOSTIC MAMMOGRAPHY WITH CAD CLINICAL INFORMATION: HX OF BREAST CA COMPARISON: February 07, 2021 TECHNIQUE: Bilateral CC, MLO, and ML views. FINDINGS: The breasts are composed of heterogeneous fibroglandular density, which can limit the detection of sm all underlying mass lesions. Postoperative changes lumpectomy upper outer RIGHT breast with parenchym al scarring. No suspicious focal mass, asymmetry, calcifications, or architectural distortion. No evidence of jorge l gnancy. MM/[place] [id number] IMPRESSION: BI-RADS: 2-Benign FOLLOW UP: 1 Year Follow-up Recommend return to annual diagnostic mammography.
== END 2022-02-25 23:59 | disposition home or self-care (01) ==
LOC: RAD 14:06 → ONCMED 02-25 13:53
PROVIDERS: PCP Nurse Practitioner Family; Visit Provider Internal Medicine Medical Oncology
DX: Z85.3 Personal history of malignant neoplasm of breast (principal)
CPT/HCPCS: 77062

== ENCOUNTER 2022-04-15 07:21 | Day surgery (SDC) | payer OTHER, SELFPAY ==
[2022-04-11 08:15] VITALS: BMI 38.0
[2022-04-15 07:44] VITALS: BP 144/95; PULSE 100; RESP 18; TEMP 36.7; O2SAT 98
[2022-04-15] MEDS: sodium chloride 0.9% 1,000 ML 30 ML IV (07:53)
--- NOTE | 2022-04-15 08:48 | W.PM.OPSFHP ---
Same Day Surgery H&P Indication for Procedure/HPI DATE OF PROCEDURE: April 15, 2022 CHIEF COMPLAINT/INDICATIONFOR SURGICAL PROCEDURE: And coming today for colonoscopy PREOP DIAGNOSIS: Positive margin breast cancer PLANNED PROCEDURE: Operation Date: 04/15/22 09:00 Proposed Procedures p Colonoscopy 80829,Z12.11(Not Applicable) - Edd Carolina MD 01/02/2022 This is a pleasant 46 years old female patient undergone right breast lumpectomy and a sentinel lymph node biopsy of the right axilla by my partner back in April 2020 for reexcision of anterior margin it was proceeded by index surgery in March 2020 wire localization lumpectomy right breast with shave margin.? Patient undergone postlumpectomy radiation and she is following up with surgery office today for annual checkup and she denies any breast related complaints and she did have mammography back in January 2021 and recommendation is to obtain a follow-up in 1 year.? She continues to follow-up with Dr. Florez. Upon further questioning regarding cancer screening patient reported that she never had a screening colonoscopy 04/15/2022 Patient comes today for screening colonoscopy ROS All systems have been reviewed negative except as for the above or per problem list. Medications/Allergies* Home Medications Medication Instructions Recorded Confirmed Type amitriptyline 75 mg tablet 75 mg PO BEDTIME 03/28/20 04/11/22 History ibuprofen 600 mg tablet 600 mg PO Q8H PRN Pain 03/28/20 04/11/22 History loratadine 10 mg tablet (Claritin) 10 mg PO QAM 03/28/20 04/11/22 History venlafaxine 150 mg 150 mg PO QAM 03/28/20 04/11/22 History capsule,extended release 24 hr naproxen 250 mg tablet 250 mg PO BID PRN Pain 02/04/22 04/11/22 History Allergies/Adverse Reactions Allergy/AdvReac Type Severity Reaction Status Date / Time No Known Allergies Allergy Verified 04/15/22 08:49 Current Medications: Generic Name Dose Route Start Last Admin Trade Name Freq PRN Reason Stop Dose Admin Sodium Chloride 1,000 mls @ 30 mls/hr 04/15/22 07:30 04/15/22 07:53 Sodium Chloride 0.9% IV 04/16/22 07:29 30 mls/hr .Q24H CYNDI Administration Pertinent History/Comorbid Conditions* Medical History (Updated 10/14/22 @ 16:29 by Adrián Florez MD) Breast cancer, right breast Stage Ib [T1aN0} COVID-19 Depression Fibromyalgia Migraine Surgical History (Updated 01/03/22 @ 12:01 by Edd Carolina MD) S/P breast lumpectomy (05/15/20) reexcision of anterior margin Status post right breast lumpectomy (04/05/20) sentinel lymph node biopsy Family History (Updated 02/04/22 @ 12:39 by Lucille Bernstein LPN) Diabetes Grandmother Type 2 CAD (coronary artery disease) Dementia Grandmother Hyperlipidemia Cancer Father Prostate cancer Stroke Grandmother Denies family history of Clotting disorder Psychiatric illness Chronic kidney disease (CKD) Suicide Anesthesia complication Bleeding disorder Lung disease Hypertension Social History Smoking and tobacco status: never smoked Alcohol intake: current Alcohol intake frequency: holidays/special occasions only Adopted: No Caregiver/support person: Yes Lives independently: Yes Household members: spouse and children Housing: House Marital status: service: No Current occupational status: employed Pets and animals: No History of recent travel: No Sexually active: Yes Current gender identity: Female Mary/Yazdanism: Spiritism Special mary needs: No Pertinent Exam Findings alert, oriented x 3, regular rate & rhythm and procedure specific exam findings (Abdominal exam nontender nondistended soft) Recommendations Surgery/Procedure today (Colonoscopy with possible biopsy) Coding Level of Care Code Acute [employer] for Orestes Spencer
--- NOTE | 2022-04-15 09:16 | ANES.PREANE2 ---
Pre-Anesthetic Assessment Height/Weight: Height 1.6 m Weight 97.522 kg Temp Pulse Resp BP Pulse Ox O2 Del Method 98.1 F 100 18 144/95 98 04/15/22 07:44 04/15/22 07:44 04/15/22 07:44 04/15/22 07:44 04/15/22 07:44 04/15/22 07:44 Preop Diagnosis: Positive margin breast cancer Operation Date: 04/15/22 09:00 Proposed Procedures p Colonoscopy 85272,Z12.11(Not Applicable) - Edd Carolina MD Was Beta Amira taken within 24 hours: N/A Was Clonidine taken within 24 hours: N/A Last intake: Intake Last Liquid Date 04/14/22 Last Liquid Time 23:00 Last Solid Date 04/13/22 Last Solid Time 19:00 Social No alcohol and No tobacco Exam alert, oriented x 3, clear to auscultation bilaterally and regular rate & rhythm Airway Submandibular: within normal limits Cervical ROM: within normal limits Mallampati: Class III History/ROS No significant history except as noted and No significant complaints Pulmonary None reported CV/HEM None reported None reported Hepatic None reported GI Gastroesophageal Reflux Disease controlled Metabolic Morbid Obesity [facility] None reported Neuropsych Anxiety and Depression Anesthetic Plan ASA status: 2 Anesthesia: Anesthesia Evaluation and MAC Risk of > 500 ml blood loss (7ml/kg in children): Yes, adequate IV access and fluids planned Medications/Allergies Home Medications Medication Instructions Recorded Confirmed Last Taken Type amitriptyline 75 mg tablet 75 mg PO BEDTIME 03/28/20 04/11/22 04/14/22 History ibuprofen 600 mg tablet 600 mg PO Q8H PRN Pain 03/28/20 04/11/22 03/29/22 History loratadine 10 mg tablet (Claritin) 10 mg PO QAM 03/28/20 04/11/22 04/14/22 History venlafaxine 150 mg 150 mg PO QAM 03/28/20 04/11/22 04/14/22 History capsule,extended release 24 hr naproxen 250 mg tablet 250 mg PO BID PRN Pain 02/04/22 04/11/22 03/29/22 History Allergies Allergy/AdvReac Type Severity Reaction Status Date / Time No Known Allergies Allergy Verified 04/15/22 08:49 Current Medications Generic Name Dose Route Start Last Admin Trade Name Freq PRN Reason Stop Dose Admin Sodium Chloride 1,000 mls @ 30 mls/hr 04/15/22 07:30 04/15/22 07:53 Sodium Chloride 0.9% IV 04/16/22 07:29 30 mls/hr .Q24H CYNDI Administration PFSH Anesthesia Medical History Breast cancer, right breast Stage Ib [T1aN0} COVID-19 Depression Fibromyalgia Migraine Surgical History S/P breast lumpectomy (05/15/20) reexcision of anterior margin Status post right breast lumpectomy (04/05/20) sentinel lymph node biopsy Family History (Updated 02/04/22 @ 12:39 by Lucille Bernstein LPN) Father Cancer Prostate cancer Grandmother Dementia Stroke Diabetes Type 2 Other CAD (coronary artery disease) Hyperlipidemia Denies family history of Clotting disorder Psychiatric illness Chronic kidney disease (CKD) Suicide Anesthesia complication Bleeding disorder Lung disease Hypertension Social History Smoking and tobacco status: never smoked Alcohol intake: current Alcohol intake frequency: holidays/special occasions only Adopted: No Caregiver/support person: Yes Lives independently: Yes Household members: spouse and children Housing: House Marital status: service: No Current occupational status: employed Pets and animals: No History of recent travel: No Sexually active: Yes Current gender identity: Female Mary/Christianity: Religion Special mary needs: No Data Anesthesia Cardiac Studies: No Data to Display
[2022-04-15 09:39] VITALS: BP 108/66; PULSE 110; RESP 18; TEMP 36.2; O2SAT 94
[2022-04-15 10:06] VITALS: BP 114/85; PULSE 93; RESP 18; O2SAT 97
--- NOTE | 2022-04-15 15:44 | ANE.PACU2 ---
Inpatient post-anesthesia follow up: Airway intact: Yes Vital signs: Temperature 97.1 F Pulse Rate 93 Respiratory Rate 18 Blood Pressure 114/85 Pulse Oximetry 97 Oxygen Delivery Me thod Room Air Oxygen Flow Rate 6 Fraction of Inspir ed Oxygen Hydration adequate: Yes Nausea and vomiting: No Pain level: 2 Mental status: Baseline
== END 2022-04-15 10:23 | disposition home or self-care (01) ==
PROVIDERS: Visit Provider Surgery
PROC: 0DJD8ZZ Inspection of Lower Intestinal Tract, Via Natural or Artificial Opening Endoscopic (ICD-10-PCS; CPT 45378; principal; 2022-04-15 09:00)
DX: Z12.11 Encounter for screening for malignant neoplasm of colon (principal); K57.30 Diverticulosis of large intestine without perforation or abscess without bleeding; Z85.3 Personal history of malignant neoplasm of breast; Z86.16 Personal history of COVID-19; F32.A Depression, unspecified; M79.7 Fibromyalgia; K21.9 Gastro-esophageal reflux disease without esophagitis; E66.01 Morbid (severe) obesity due to excess calories; Z68.38 Body mass index [BMI] 38.0-38.9, adult
CPT/HCPCS: 45378; J2704; J7030

== ENCOUNTER 2023-02-04 12:17 | Oncology outpatient (recurring) (ONCR) | payer OTHER, SELFPAY ==
[2023-02-04 13:33] LABS: Basophils % 0.8 %; Eosinophils # 0.2 10^3/uL (0.0-0.8); Eosinophils % 4.8 %; Lymphocytes # 1.5 10^3/uL (0.8-4.8); Lymphocytes % 30.9 %; Mean Corpuscular HGB Conc 32.3 g/dL (30-55); Mean Corpuscular Hemoglobin 29.6 pg (27-33); Mean Corpuscular Volume 91.7 fl (85-98); Mean Platelet Volume 8.7 fL (7.4-10.4); Monocytes # 0.4 10^3/uL (0.2-0.9); Monocytes % 7.9 %; Neutrophils # 2.74 10^3/uL (1.8-7.7); Neutrophils % 55.4 %; Nucleated Red Blood Cells % 0 %; Platelet Count 204 10^3/cmm (157-399); Red Blood Count 4.36 10^6/uL (3.85-5.65); Red Cell Distribution Width 12.8 % (12.1-15.1); White Blood Count 4.95 10^3/uL (3.29-11.43)
[2023-02-04 13:59] LABS: Alanine Aminotransferase 14 U/L (0-33); Albumin Level 4.3 g/dL (3.5-5.2); Alkaline Phosphatase 110 U/L (35-105); Anion Gap 11.3 (5-19); Aspartate Amino Transferase 25 U/L (0-32); Blood Urea Nitrogen 13 mg/dL (6-20); Carbon Dioxide 28 mmol/L (22-29); Chloride 107 mmol/L (98-107); Globulin 2.8 g/dL (1.3-4.6); Glomerular Filtration Rate 58.7 mL/min (90-130); Glucose 125 mg/dL (65-115); Osmolality Calculated 296 mOsm/kg (285-295); Potassium 4.3 mmol/L (3.5-5.1); Sodium 142 mmol/L (136-145); Total Bilirubin 0.2 mg/dL (0.15-1.2); Total Protein 7.1 g/dL (6.6-8.7)
== END 2023-02-25 23:59 | disposition home or self-care (01) ==
PROVIDERS: Nurse Practitioner Family; PCP Nurse Practitioner Family; Visit Provider Internal Medicine Medical Oncology
DX: C50.411 Malignant neoplasm of upper-outer quadrant of right female breast (principal); Z17.1 Estrogen receptor negative status [ER-]; Z79.899 Other long term (current) drug therapy
CPT/HCPCS: 36415; 80053; 85025

== ENCOUNTER 2023-02-25 12:14 | Outpatient (CLI) | payer OTHER, SELFPAY ==
--- NOTE | 2023-02-25 12:30 | MM_ITS ---
WS: [id number] DIAGNOSTIC BILATERAL DIGITAL BREAST TOMOSYNTHESIS MAMMOGRAPHY WITH CAD HISTORY: Yearly surveillance COMPARISON: 02/20/2022 and 02/07/2021 TECHNIQUE: Bilateral craniocaudad, mediolateral oblique, and mediolateral views are submitted with to mosynthjuan j and SM. Computer aided detection utilized. Breast composition: The breasts are heterogeneously dense, which may obscure small masses. Postoperat patricia changes in the upper outer quadrant of the RIGHT breast with architectural distortion. No suspici ous calcifications. No mass. No interval change. IMPRESSION: MM/[place] [id number] BI-RADS: 2-Benign FOLLOW UP: 1 Year Follow-up
== END 2023-02-25 12:15 | disposition home or self-care (01) ==
LOC: RAD 12:14
PROVIDERS: PCP Nurse Practitioner Family; Visit Provider Internal Medicine Medical Oncology
DX: C50.411 Malignant neoplasm of upper-outer quadrant of right female breast (principal)
CPT/HCPCS: 77062; G0279

== ENCOUNTER 2023-08-06 11:31 | Oncology outpatient (recurring) (ONCR) | payer OTHER, SELFPAY ==
[2023-08-06 11:49] LABS: Basophils % 0.9 %; Eosinophils # 0.3 10^3/uL (0.0-0.8); Lymphocytes # 1.2 10^3/uL (0.8-4.8); Lymphocytes % 26.1 %; Mean Corpuscular HGB Conc 32.7 g/dL (30-55); Mean Corpuscular Volume 91.7 fl (85-98); Mean Platelet Volume 8.6 fL (7.4-10.4); Monocytes # 0.4 10^3/uL (0.2-0.9); Monocytes % 8.9 %; Neutrophils # 2.59 10^3/uL (1.8-7.7); Neutrophils % 57.9 %; Nucleated Red Blood Cells % 0 %; Platelet Count 204 10^3/cmm (157-399); Red Blood Count 4.47 10^6/uL (3.85-5.65); Red Cell Distribution Width 12.7 % (12.1-15.1); White Blood Count 4.48 10^3/uL (3.29-11.43)
[2023-08-06 12:07] LABS: Alanine Aminotransferase 16 U/L (0-33); Albumin Level 4.1 g/dL (3.5-5.2); Alkaline Phosphatase 129 U/L (35-105); Blood Urea Nitrogen 13 mg/dL (6-20); Calcium 9.1 mg/dL (8.5-10.5); Carbon Dioxide 28 mmol/L (22-29); Chloride 104 mmol/L (98-107); Globulin 3.3 g/dL (1.3-4.6); Glomerular Filtration Rate 66.3 mL/min (90-130); Glucose 84 mg/dL (65-115); Osmolality Calculated 289 mOsm/kg (285-295); Sodium 140 mmol/L (136-145); Total Bilirubin 0.2 mg/dL (0.15-1.2); Total Protein 7.4 g/dL (6.6-8.7)
[2023-08-06 12:17] LABS: Anion Gap 12.2 (5-19); Aspartate Amino Transferase 19 U/L (0-32); Potassium 4.2 mmol/L (3.5-5.1)
== END 2023-08-26 23:59 | disposition home or self-care (01) ==
PROVIDERS: Nurse Practitioner Family; PCP Nurse Practitioner Family; Visit Provider Internal Medicine Medical Oncology
DX: C50.411 Malignant neoplasm of upper-outer quadrant of right female breast (principal); Z53.9 Procedure and treatment not carried out, unspecified reason
CPT/HCPCS: 36415; 80053; 85025

== ENCOUNTER 2023-09-02 08:30 | Oncology outpatient (recurring) (ONCR) | payer OTHER, SELFPAY ==
--- NOTE | 2023-09-02 08:45 | NM_ITS ---
WS: [id number] NUCLEAR MEDICINE BONE SCAN Radiopharmaceutical: 24.2 Tc-99m MDP mCi IV Injection site: Antecubital Postinjection imaging delay: 1 hr CLINICAL INFORMATION: Malignant neoplasm breast COMPARISON: None. FINDINGS: Bone lesions: There are no osseous lesions suspicious for metastatic disease. Soft tissue contours: Normal. Kidneys: Normal. Other findings: None. NM/NM bone scan whole body* [id number] IMPRESSION: No evidence of osseous metastatic disease.
== END 2023-09-26 23:59 | disposition home or self-care (01) ==
LOC: ONCMED 08:31 → RAD 08:32 → ONCMED 09-15 15:05
PROVIDERS: PCP Nurse Practitioner Family; Visit Provider Internal Medicine Medical Oncology
DX: C50.411 Malignant neoplasm of upper-outer quadrant of right female breast (principal)
CPT/HCPCS: 78306; A9561

== ENCOUNTER 2023-11-18 13:52 | Oncology outpatient (recurring) (ONCR) | payer OTHER, SELFPAY ==
[2023-11-18 14:08] LABS: Eosinophils # 0.2 10^3/uL (0.0-0.8); Eosinophils % 5.6 %; Hematocrit 42.5 % (36-47); Lymphocytes # 1.2 10^3/uL (0.8-4.8); Lymphocytes % 28.5 %; Mean Corpuscular HGB Conc 32.2 g/dL (30-55); Mean Corpuscular Hemoglobin 29.5 pg (27-33); Mean Corpuscular Volume 91.6 fl (85-98); Mean Platelet Volume 8.8 fL (7.4-10.4); Monocytes # 0.4 10^3/uL (0.2-0.9); Monocytes % 10.5 %; Neutrophils # 2.23 10^3/uL (1.8-7.7); Neutrophils % 54.2 %; Nucleated Red Blood Cells % 0 %; Platelet Count 212 10^3/cmm (157-399); Red Blood Count 4.64 10^6/uL (3.85-5.65); Red Cell Distribution Width 12.6 % (12.1-15.1); White Blood Count 4.11 10^3/uL (3.29-11.43)
[2023-11-18 14:24] LABS: Alanine Aminotransferase 7 U/L (0-33); Alkaline Phosphatase 122 U/L (35-105); Anion Gap 15.1 (5-19); Aspartate Amino Transferase 17 U/L (0-32); Blood Urea Nitrogen 10 mg/dL (6-20); Carbon Dioxide 24 mmol/L (22-29); Chloride 106 mmol/L (98-107); Globulin 3.2 g/dL (1.3-4.6); Glomerular Filtration Rate 58.7 mL/min (90-130); Glucose 109 mg/dL (65-115); Osmolality Calculated 292 mOsm/kg (285-295); Potassium 4.1 mmol/L (3.5-5.1); Sodium 141 mmol/L (136-145); Total Bilirubin 0.2 mg/dL (0.15-1.2); Total Protein 7.2 g/dL (6.6-8.7)
== END 2023-11-26 23:59 | disposition home or self-care (01) ==
PROVIDERS: Internal Medicine; PCP Nurse Practitioner Family; Visit Provider Internal Medicine Medical Oncology
DX: C50.411 Malignant neoplasm of upper-outer quadrant of right female breast (principal)
CPT/HCPCS: 36415; 80053; 85025

== ENCOUNTER 2024-02-18 08:41 | Outpatient (CLI) | payer OTHER, SELFPAY ==
--- NOTE | 2024-02-18 08:53 | XR_ITS ---
WS: [id number] Exam: XR foot LT min 3V* [id number] Date/Time of Exam: 02/18/2024 8:54 AM Reason For Exam: pain in left foot No fracture or dislocation. The joints are preserved. Unremarkable soft tissues. XR/XR foot LT min 3V* [id number] IMPRESSION: 1. Negative LEFT foot.
== END 2024-02-18 08:42 | disposition home or self-care (01) ==
LOC: RAD 08:44
PROVIDERS: PCP Nurse Practitioner Family; Visit Provider Nurse Practitioner Family
DX: M79.672 Pain in left foot (principal)
CPT/HCPCS: 73630

== ENCOUNTER 2024-02-25 12:17 | Oncology outpatient (recurring) (ONCR) | payer OTHER, SELFPAY ==
[2024-02-25 12:31] LABS: Basophils # 0.1 10^3/uL (0.0-0.1); Basophils % 1.7 %; Eosinophils # 0.4 10^3/uL (0.0-0.8); Eosinophils % 8.1 %; Hematocrit 40.5 % (36-47); Lymphocytes # 1.4 10^3/uL (0.8-4.8); Lymphocytes % 29.7 %; Mean Corpuscular HGB Conc 32.3 g/dL (30-55); Mean Corpuscular Hemoglobin 30.3 pg (27-33); Mean Corpuscular Volume 93.5 fl (85-98); Mean Platelet Volume 8.5 fL (7.4-10.4); Monocytes # 0.4 10^3/uL (0.2-0.9); Monocytes % 8.3 %; Nucleated Red Blood Cells % 0 %; Platelet Count 223 10^3/cmm (157-399); Red Blood Count 4.33 10^6/uL (3.85-5.65); Red Cell Distribution Width 12.9 % (12.1-15.1); White Blood Count 4.81 10^3/uL (3.29-11.43)
[2024-02-25 12:49] LABS: Alanine Aminotransferase 11 U/L (0-33); Albumin Level 4.3 g/dL (3.5-5.2); Alkaline Phosphatase 120 U/L (35-105); Anion Gap 13.9 (5-19); Aspartate Amino Transferase 15 U/L (0-32); Blood Urea Nitrogen 9 mg/dL (6-20); Calcium 8.9 mg/dL (8.5-10.5); Carbon Dioxide 26 mmol/L (22-29); Chloride 103 mmol/L (98-107); Globulin 2.9 g/dL (1.3-4.6); Glucose 91 mg/dL (65-115); Osmolality Calculated 286 mOsm/kg (285-295); Potassium 3.9 mmol/L (3.5-5.1); Sodium 139 mmol/L (136-145); Total Bilirubin 0.2 mg/dL (0.15-1.2); Total Protein 7.2 g/dL (6.6-8.7)
== END 2024-02-26 23:59 | disposition home or self-care (01) ==
PROVIDERS: Nurse Practitioner Family; PCP Nurse Practitioner Family; Visit Provider Internal Medicine Medical Oncology
DX: C50.411 Malignant neoplasm of upper-outer quadrant of right female breast (principal)
CPT/HCPCS: 36415; 80053; 85025

== ENCOUNTER 2024-03-03 08:27 | Outpatient (CLI) | payer OTHER, SELFPAY ==
--- NOTE | 2024-03-03 09:00 | MM_ITS ---
WS: [id number] DIAGNOSTIC BILATERAL DIGITAL BREAST TOMOSYNTHESIS MAMMOGRAPHY WITH CAD HISTORY: surveillance, history RIGHT breast cancer. COMPARISON: 02/25/2023, 02/20/2022, 02/07/2021 TECHNIQUE: Bilateral craniocaudad, mediolateral oblique, and mediolateral views are submitted with to mosynthesis and SM. Computer aided detection utilized. Breast composition: The breasts are heterogeneously dense, which may obscure small masses. Lumpectomy site RIGHT upper outer quadrant similar to the most recent examinations. No recurrent mass . No new mass or calcification. No nipple retraction. MM/MM diag BI tomosynthesis [id number] IMPRESSION: BI-RADS: 2 - Benign FOLLOW UP: 1 Year Follow-up
== END 2024-03-03 08:28 | disposition home or self-care (01) ==
PROVIDERS: PCP Nurse Practitioner Family; Visit Provider Nurse Practitioner Family
DX: C50.411 Malignant neoplasm of upper-outer quadrant of right female breast (principal); R92.333 Mammographic heterogeneous density, bilateral breasts; Z98.890 Other specified postprocedural states
CPT/HCPCS: 77062; G0279

== ENCOUNTER 2024-08-25 12:57 | Oncology outpatient (recurring) (ONCR) | payer OTHER, SELFPAY ==
[2024-08-25 13:12] LABS: Basophils # 0.1 10^3/uL (0.0-0.1); Basophils % 0.8 %; Eosinophils # 0.3 10^3/uL (0.0-0.8); Eosinophils % 4.9 %; Hematocrit 39.9 % (36-47); Lymphocytes # 1.4 10^3/uL (0.8-4.8); Lymphocytes % 22.5 %; Mean Corpuscular HGB Conc 32.1 g/dL (30-55); Mean Corpuscular Hemoglobin 29.4 pg (27-33); Mean Corpuscular Volume 91.7 fl (85-98); Mean Platelet Volume 8.5 fL (7.4-10.4); Monocytes # 0.6 10^3/uL (0.2-0.9); Monocytes % 8.9 %; Neutrophils # 3.94 10^3/uL (1.8-7.7); Neutrophils % 62.4 %; Nucleated Red Blood Cells % 0 %; Platelet Count 198 10^3/cmm (157-399); Red Blood Count 4.35 10^6/uL (3.85-5.65); Red Cell Distribution Width 12.6 % (12.1-15.1); White Blood Count 6.31 10^3/uL (3.29-11.43)
[2024-08-25 13:34] LABS: Alanine Aminotransferase 18 U/L (0-33); Albumin Level 4.1 g/dL (3.5-5.2); Alkaline Phosphatase 127 U/L (35-105); Aspartate Amino Transferase 16 U/L (0-32); Blood Urea Nitrogen 11 mg/dL (6-20); Calcium 9.2 mg/dL (8.5-10.5); Carbon Dioxide 24 mmol/L (22-29); Chloride 103 mmol/L (98-107); Creatinine Clr Calc Pharmacy 93.3148; Globulin 3.4 g/dL (1.3-4.6); Glomerular Filtration Rate 75.6 mL/min (90-130); Glucose 96 mg/dL (65-115); Osmolality Calculated 285 mOsm/kg (285-295); Sodium 138 mmol/L (136-145); Total Bilirubin 0.2 mg/dL (0.15-1.2); Total Protein 7.5 g/dL (6.6-8.7)
== END 2024-08-25 23:59 | disposition home or self-care (01) ==
PROVIDERS: PCP Nurse Practitioner Family; Visit Provider Internal Medicine
DX: C50.411 Malignant neoplasm of upper-outer quadrant of right female breast (principal)
CPT/HCPCS: 36415; 80053; 85025

== ENCOUNTER 2025-02-23 11:24 | Oncology outpatient (recurring) (ONCR) | payer OTHER, SELFPAY ==
[2025-02-23 11:44] LABS: Hematocrit 41.4 % (36-47); Hemoglobin 13.20 g/dL (11.27-16.99); Mean Corpuscular HGB Conc 31.9 g/dL (30-55); Mean Corpuscular Hemoglobin 30.0 pg (27-33); Mean Corpuscular Volume 94.1 fl (85-98); Nucleated Red Blood Cells % 0 %; Platelet Count 210 10^3/cmm (157-399); Red Blood Count 4.40 10^6/uL (3.85-5.65); White Blood Count 4.72 10^3/uL (3.29-11.43)
[2025-02-23 12:23] LABS: Alanine Aminotransferase 17 U/L (0-33); Albumin Level 4.3 g/dL (3.5-5.2); Alkaline Phosphatase 104 U/L (35-105); Anion Gap 16.6 (5-19); Aspartate Amino Transferase 20 U/L (0-32); Blood Urea Nitrogen 9 mg/dL (6-20); Calcium 9.9 mg/dL (8.5-10.5); Carbon Dioxide 25 mmol/L (22-29); Chloride 104 mmol/L (98-107); Globulin 3.1 g/dL (1.3-4.6); Glucose 96 mg/dL (65-115); Osmolality Calculated 291 mOsm/kg (285-295); Potassium 4.6 mmol/L (3.5-5.1); Sodium 141 mmol/L (136-145); Total Protein 7.4 g/dL (6.6-8.7)
== END 2025-02-25 23:59 | disposition home or self-care (01) ==
PROVIDERS: PCP Nurse Practitioner Family; Visit Provider Internal Medicine
DX: C50.411 Malignant neoplasm of upper-outer quadrant of right female breast (principal)
CPT/HCPCS: 36415; 80053; 83615; 85025

== ENCOUNTER 2025-03-07 10:08 | Oncology outpatient (recurring) (ONCR) | payer OTHER, SELFPAY ==
--- NOTE | 2025-03-07 10:30 | MM_ITS ---
WS: [id number] DIAGNOSTIC BILATERAL DIGITAL BREAST TOMOSYNTHESIS MAMMOGRAPHY WITH CAD HISTORY: malignang neoplasm of breast, history of RIGHT breast cancer with radiation. COMPARISON: 03/03/2024, 02/25/2023, 02/20/2022 TECHNIQUE: Bilateral craniocaudad, mediolateral oblique, and mediolateral views are submitted with tomosynthesis and SM. Computer aided detection utilized. Breast composition: The breasts are heterogeneously dense, which may obscure small masses. Post lumpectomy site with clips in the upper outer quadrant of the RIGHT breast at middle depth. Stable area of architectural distortion. No new mass or distortion. No suspicious grouping of calcifications. MM/MM diag BI tomosynthesis [id number] IMPRESSION: BI-RADS: 2 - Benign FOLLOW UP: 1 Year Follow-up
== END 2025-03-27 23:59 | disposition home or self-care (01) ==
LOC: ONCMED 10:08
PROVIDERS: PCP Nurse Practitioner Family; Visit Provider Internal Medicine
DX: Z08 Encounter for follow-up examination after completed treatment for malignant neoplasm (principal); Z85.3 Personal history of malignant neoplasm of breast; Z92.3 Personal history of irradiation; R92.333 Mammographic heterogeneous density, bilateral breasts
CPT/HCPCS: 77062; G0279